=== PATIENT | male | born 1975 | race Caucasian/White ===

== ENCOUNTER 2017-11-15 18:42 | Inpatient (IN) | payer MEDICARE, MEDICAID ==
--- OUTSIDE RECORDS SUMMARY | 2017-11-15 18:59 | XMS REPORT ---
:1975 External Reference #:[id number] Author Organization [employer] Address [address] [place] [address] [place] [address] Phone [phone] Care Team Providers Name Role Phone Geraldine An MD Primary Care Physician Unavailable Payers Type Date Identification Numbers Payment Provider Subscriber Commercial Expires: Policy Number: [employer] Madhu Guidry 2016 [id number] Essential PayID: [id number] [address] [address] [place] [address] Medigap Part B Policy Number: [id number] Medicare Madhu Guidry PayID: [id number] [address] [place] [address] Medigap Part B Policy Number: [id number] Medicaid Madhu Guidry Group Name: 1 1 [address] PayID: [id number] [place] [address] Problems Date Description Provider Status Onset: 09/22/2017 Localized, primary osteoarthritis Nirmala Mora M.D. Active Onset: 08/19/2016 Aseptic necrosis of head of femur Nirmala Mora M.D. Active Family History Date Family Member(s) Problem(s) Comments General Diabetes General Heart Disease General Hypertension General Cancer Mother Diabetes Mother Arthritis Social History Type Date Description Comments Lives With Spouse Occupation Disabled ETOH Use Denies alcohol use Smoking Patient is a current smoker, smokes every day Smoking Light tobacco smoker (10 or fewer cigarettes/day) Exercise Type/Frequency Exercises sporadically Allergies, Adverse Reactions, Alerts Date Description Reaction Status Severity Comments 07/21/2016 Biaxin active 07/21/2016 Sulfa Antibiotics active 07/21/2016 Bactrim active 07/21/2016 Bee Sting active Medications Medication Date Status Form Strength Qnty SIG Indications Ordering Provider Epipen 2-Elton / Active Solution 0.3mg/0.3M use as Unknown 0000 Auto-Injec L directed t Nitroglycerin / Active Tablets 0.4mg 1 sl Unknown 0000 Sub q5mins x3 as needed for chest pain Keppra / Active Tablets 750mg 1 by mouth Unknown 0000 twice a day Depakote ER // Active Tablets ER 500mg 1 by mouth Unknown 0000 24HR every night at bedtime Topamax / Active Tablets 200mg take one Unknown 0000 capsule/ta blet by mouth twice daily (at present time 150 mg twice a day, may titrate 200 mg bid) Dulera / Active Aerosol 100-5mcg/A [address] twice a day Ventolin HFA / Active Aerosol 108(90Base 2 puffs by Unknown 0000 ) mcg/Act mouth four times a day as needed Atrovent HFA / Active Aerosol 17mcg/Act 1 unit, Unknown 0000 inhl, twice a day Singulair / Active Tablets 10mg 1 by mouth Unknown 0000 every day Hydrocortisone / Active Cream 1% as Unknown Acetate 0000 directed Oxymorphone HCL / Active Tablets ER 10mg 1 by mouth Unknown ER 0000 12HR twice a day as needed pain Ibuprofen / Active Tablets 800mg by mouth Unknown 0000 three times a day as needed Mucinex / Active Tablets ER 600mg twice a Unknown 0000 12HR day as needed Bentyl / Active Capsules 10mg 1 by mouth Unknown 0000 twice a day Zyrtec Allergy / Active Tablets 10mg 1 by mouth Unknown 0000 every day for the next 3-4 weeks, then as needed Albuterol / Active Unknown Sulfate 0000 Gabapentin / Active Capsules 400mg take one Unknown 0000 capsule by mouth 3 times a day Oxymorphone HCL / Active Tablets 1 by mouth Unknown Ir 0000 four times Seroquel / Active Tablets 100mg take 1-2 Unknown 0000 tablet by mouth every night Naproxen / Active Tablets 375mg twice a Unknown 0000 day with food Omeprazole / Hx Capsules 40mg 1 by mouth Unknown 0000 - DR every day 2017 Aspirin / Hx Chewtabs 81mg 1 by mouth Unknown 0000 - every day 2017 Lisinopril / Hx Tablets 10mg 1 by mouth Unknown 0000 - every day 2017 Celebrex / Hx Capsules 200mg 1 by mouth Unknown 0000 - every day 2017 Metformin HCL / Hx Tablets 500mg 1 by mouth Unknown 0000 - twice a 2017 Topiramate / Hx Tablets 200mg 1 by mouth Unknown 0000 - twice a 2017 Medications Administered in Office Medication Date Status Form Strength Qnty SIG Indications Ordering Provider Depomedrol Administered Injection Nirmala 40MG 018 Clementina Mora Depomedrol Administered Injection Nirmala 40MG 018 Clementina Mora Vital Signs Date Vital Result Comment 11/03/2017 Height 71 inches 5'11" Weight 238.00 lb Heart Rate 72 /min BP Systolic 132 mmHg BP Diastolic 84 mmHg BMI (Body Mass Index) 33.2 kg/m2 10/23/2017 Height 71 inches 5'11" Weight 231.00 lb Heart Rate 75 /min BP Systolic 136 mmHg BP Diastolic 78 mmHg Pain Level 10 BMI (Body Mass Index) 32.2 kg/m2 08/19/2016 Height 72 inches 6'0" Weight 244.00 lb Heart Rate 68 /min BP Systolic 112 mmHg BP Diastolic 83 mmHg BMI (Body Mass Index) 33.1 kg/m2 07/26/2016 Height 72 inches 6'0" Weight 244.00 lb Heart Rate 80 /min BP Systolic 120 mmHg BP Diastolic 80 mmHg Respiratory Rate 20 /min Pain Level 8 BMI (Body Mass Index) 33.1 kg/m2 Results Test Date Test Result H/L Range Note Inr/Protime 11/06/2017 Inr 0.92 0.77-1.02 Laboratory test finding 11/06/2017 Partial Thrombo 30.9 seconds 26.0- 36.3 Time PTT CBC Auto Diff 11/06/2017 White Blood Count 9.1 10^3/uL 3.5-10.8 Red Blood Count 4.40 10^6/uL 4.00-5.40 Hemoglobin 13.9 g/dL Low 14.0-18.0 Hematocrit 42 % 42-52 Mean Corpuscular Volume 94 fL 80-94 Mean Corpuscular Hemoglobin 32 pg High 27-31 Mean Corpuscular HGB Conc 34 g/dL 31-36 Red Cell Distribution Width 14 % 10.5-15 Platelet Count 207 10^3/uL 150-450 Mean Platelet Volume 8.7 um3 7.4-10.4 Abs Neutrophils 5.5 10^3/uL 1.5-7.7 Abs Lymphocytes 2.9 10^3/uL 1.0-4.8 Abs Monocytes 0.6 10^3/uL 0-0.8 Abs Eosinophils 0.1 10^3/uL 0-0.6 Abs Basophils 0.1 10^3/uL 0-0.2 Abs Nucleated RBC 0 10^3/uL Granulocyte % 59.8 % 38-83 Lymphocyte % 31.3 % 25-47 Monocyte % 7.1 % High 0-7 Eosinophil % 1.2 % 0-6 Basophil % 0.6 % 0-2 Nucleated Red Blood Cells % 0 Urinalysis Profile 11/06/2017 Urine Color Yellow Urine Appearance Cloudy Urine Specific Flomot 1.013 1.010-1.030 Urine pH 7.0 5-9 Urine Urobilinogen Negative Negative Urine Ketones Negative Negative Urine Protein Negative Negative Urine Leukocytes Negative Negative Urine Blood Negative Negative Urine Nitrite Negative Negative Urine Bilirubin Negative Negative Urine Glucose Negative Negative Comp Metabolic Panel 11/06/2017 Sodium 142 mmol/L 135-145 Potassium 4.0 mmol/L 3.5-5.0 Chloride 106 mmol/L 101-111 Co2 Carbon Dioxide 28 mmol/L 22-32 Anion Gap 8 mmol/L 2-11 Glucose 97 mg/dL 70-100 Blood Urea Nitrogen 16 mg/dL 6-24 Creatinine 0.86 mg/dL 0.67-1.17 BUN/Creatinine Ratio 18.6 8-20 Calcium 9.6 mg/dL 8.6-10.3 Total Protein 7.0 g/dL 6.4-8.9 Albumin 4.1 g/dL 3.2-5.2 Globulin 2.9 g/dL 2-4 Albumin/Globulin Ratio 1.4 1-3 Total Bilirubin 0.40 mg/dL 0.2-1.0 Alkaline Phosphatase 62 U/L 34-104 Alt 6 U/L Low 7-52 Ast 9 U/L Low 13-39 Egfr Non- 97.1 >60 Egfr 117.4 >60 1 Type & Screen 11/06/2017 Patient Blood Type A Positive Antibody Screen NEGATIVE 1 Because ethnic data is not always readily available, this report includes an eGFR for both -Americans and non- Americans. The National Kidney Disease Education Program (NKDEP) does not endorse the use of the MDRD equation for patients that are not between the ages of 18 and 70, are , have extremes of body size, muscle mass, or nutritional status, or are non- or non-. According to the National Kidney Foundation, irrespective of diagnosis, the stage of the disease is based on the level of kidney function: Stage Description GFR(mL/min/1.73 m(2)) 1 Kidney damage with normal or decreased GFR 90 2 Kidney damage with mild decrease in GFR 60-89 3 Moderate decrease in GFR 30-59 4 Severe decrease in GFR 15-29 5 Kidney failure <15 (or dialysis) Procedures Date CPT Code Description Status 09/22/2017 32739 Inject/Drain Joint/Bursa Major W/O US Completed Encounters Type Date Location Provider CPT E/M Dx Office Visit 10/23/2017 [facility] Nirmala Mora M.D. 28195 M87.051 1:45p [facility] M25.551 M16.11 Office Visit 09/22/2017 8:30a [facility] Nirmala Mroa M.D. 28875 M87.051 [facility] M87.052 M25.551 M25.552 M25.561 M25.562 M25.461 M25.462 M17.0 Office Visit 08/19/2016 1:15p [facility] Nirmala Mora M.D. 34821 M87.051 [facility] M25.551 M87.052 M25.552 Office Visit 07/26/2016 1:00p [facility] [place] [address] M87.051 [facility] AT [place] Office Visit 12/13/2011 3:36p [facility] Juanjose [place], [address] 345.80 Assoc,pc Hospitalists N.P. Office Visit 12/12/2011 3:38p [facility] Beth Bull, [address] 780.39 Services Of Leno Mcrae Office Visit 12/12/2011 3:36p [facility] Mariposa [place], [address] 345.80 ted Aguirre Hospitalists Clementina Plan of Care Future Appointment(s):11/24/2017 1:45 pm - Nirmala Mora M.D. at [facility].11/16/2017 2:30 pm - Efrain Olivo PA-C at [facility] ..A.11/16/2017 2:30 pm - CORIE Patricio at [facility] ..A.11/16/2017 2:30 pm - Nirmala Mora M.D. at [facility]..11/03/2017 - Nirmala Mora M.D.M25.551 Pain in right hipFollow up:Follow up: 2 weeks after [id number] Unilateral primary osteoarthritis, right hip
--- OUTSIDE RECORDS SUMMARY | 2017-11-15 18:59 | XMS REPORT ---
:1975 External Reference #:[id number] Author Organization [employer] Address [address] [place] [address] Phone [phone] Care Team Providers Name Role Phone Geraldine An MD Primary Care Physician Unavailable Payers Type Date Identification Numbers Payment Provider Subscriber Commercial Expires: Policy Number: [employer] Madhu Guidry 2016 [id number] [employer] PayID: [id number] [address] [address] [place] [address] Medigap Part B Policy Number: [id number] Medicare Madhu Guidry PayID: [id number] [address] [place] [address] Medigap Part B Policy Number: [id number] Medicaid Madhu Guidry Group Name: 1 1 [address] PayID: [id number] [place] [address] Problems Date Description Provider Status Onset: 09/22/2017 [...] Mora Vital Signs Date Vital Result Comment 10/23/2017 Height 71 inches 5'11" Weight 231.00 [...] BMI (Body Mass Index) 33.1 kg/m2 Results Description No Information Procedures Date CPT Code Description Status 09/22/2017 04847 Inject/Drain Joint/Bursa Major W/O US Completed Encounters Type Date Location Provider CPT E/M Dx Office Visit 09/22/2017 [facility] Nirmala Mora M.D. 41042 M87.051 8:30a [facility] M87.052 M25.551 M25.552 M25.561 M25.562 M25.461 M25.462 M17.0 Office Visit 08/19/2016 1:15p [facility] Nirmala Mora M.D. 39270 M87.051 [facility]. M25.551 M87.052 M25.552 Office Visit 07/26/2016 1:00p [facility] [place] [address] M87.051 Negative Checker AT [place] Office Visit 12/13/2011 3:36p [facility] Juanjose [place], [address] 345.80 Ass, Hospitalists N.P. Office Visit 12/12/2011 3:38p [facility] Beth Bull, [address] 780.39 Services Of Leno Mcrae Office Visit 12/12/2011 3:36p [facility] Mariposa [place]ozhn, [address] 345.80 Princess, Hospitalists Clementina Plan of Care Future Appointment(s):11/03/2017 2:15 pm - Nirmala Mora M.D. at [facility] [place]10/23/2017 - Nirmala Mora M.D.M87.051 Idiopathic aseptic necrosis of right femurFollow up:Follow up: 7-10 days before [id number] Pain in right hip
--- OUTSIDE RECORDS SUMMARY | 2017-11-15 18:59 | XMS REPORT ---
:1975 External Reference #:[id number] Author Organization [employer] Address [address] [place] [address] Phone [phone] Care Team Providers Name Role Phone Geraldine An MD Primary Care Physician Unavailable Payers Type Date Identification Numbers Payment Provider Subscriber Commercial Expires: Policy Number: [employer] Madhu Guidry 2016 [id number] [employer] PayID: [id number] [address] [address] [place] [address] Medigap Part B Policy Number: [id number] Medicare Madhu Guidry PayID: [id number] [address] [place] [address] Medigap Part B Policy Number: [id number] Medicaid Madhu Guidry Group Name: 1 1 [address] PayID: [id number] [place] [address] Problems Date Description Provider Status Onset: 09/22/2017 [...] Procedures Date CPT Code Description Status 09/22/2017 33092 Inject/Drain Joint/Bursa Major W/O US Completed Encounters Type Date Location Provider CPT E/M Dx Office Visit 10/23/2017 [facility] Nirmala Mora M.D. 47639 M87.051 1:45p Of C.MEmilieAEmilie M25.551 M16.11 Office Visit 09/22/2017 8:30a [facility] Nirmala Mora M.D. 89243 M87.051 C.M.AEmilie M87.052 M25.551 M25.552 M25.561 M25.562 M25.461 M25.462 M17.0 Office Visit 08/19/2016 1:15p [facility] Nirmala Mora M.D. 85870 M87.051 C.[facility]. M25.551 M87.052 M25.552 Office Visit 07/26/2016 1:00p [facility] [place] [address] M87.051 [employer] AT [place] Office Visit 12/13/2011 3:36p [facility], [address] 345.80 Assoc, Hospitalists N.P. Office Visit 12/12/2011 3:38p [facility] Beth Bull, [address] 780.39 Services Of Leno Mcrae Office Visit 12/12/2011 3:36p [facility] Mariposa Moore, [address] 345.80 Assoc, Hospitalists M.DEmilie Plan of Care Future Appointment(s):11/24/2017 1:45 pm - Nirmala Mora M.D. at [facility].11/16/2017 2:30 pm - Efrain Olivo PA-C at [facility]11/16/2017 2:30 pm - CORIE Patricio at [facility].11/16/2017 2:30 pm - Nirmala Mora M.D. at [facility]11/03/2017 - Nirmala Mora M.D.M25.551 Pain in right hipFollow up:Follow up: 2 weeks after stpatloH16.11 Unilateral primary osteoarthritis, right hip
--- NOTE | 2017-11-15 20:00 | ED ---
Shortness of Breath - HPI Summary HPI Summary: This is scribe Haylee Cuellar documenting for attending Tom Mclaughlin MD. This patient is a 42 year old M presenting to [facility] accompanied by family with a chief complaint of progressively worsening SOB and dry cough. Reports fever, chills, and sweats for the past three days. Family reports and Sa02 of 87% at home. PMHx of asthma, COPD, seizures, chronic low back pain, and pre-diabetes I, Dr. Mclaughlin, personally performed the services described in this documentation as scribed in my presence and it is both accurate and complete. - History of Current Complaint Chief Complaint: EDShortnessOfBreath Time Seen by Provider: 11/15/17 19:50 Hx Obtained From: Patient Onset/Duration: Lasting Days Timing: Constant Current Severity: Mild Associated Signs & Symptoms: Cough (Nonproductive) Related History: Similar Episode - astham COPD - Allergy/Home Medications Allergies/Adverse Reactions: Allergies Allergy/AdvReac Type Severity Reaction Status Date / Time Sulfa (Sulfonamide Allergy Severe hives and Verified 11/15/17 20:10 Antibiotics) thrush sulfamethoxazole Allergy Severe Hives Verified 11/15/17 20:10 [From Bactrim] trimethoprim [From Bactrim] Allergy Severe Hives Verified 11/15/17 20:10 bee stings Allergy Severe Anaphylatic Uncoded 11/15/17 20:10 Shock Home Medications: Home Medications metFORMIN* [Glucophage 500 MG TAB *] 500 mg PO BID 11/15/17 [History Confirmed 11/15/17] PMH/Surg Hx/FS Hx/Imm Hx Endocrine/Hematology History: Denies: Hx Diabetes - corrected, Hx Thyroid Disease Comment Only: Hx Anticoagulant Therapy - aspirin for TIA's Cardiovascular History: Reports: Hx Hypertension, Other Cardiovascular Problems/ Disorders - 2 TIA's Denies: Hx Pacemaker/ICD Respiratory History: Reports: Hx Asthma, Hx Chronic Obstructive Pulmonary Disease (COPD) History: Denies: Hx Renal Disease Musculoskeletal History: Reports: Hx Arthritis, Hx Back Problems Sensory History: Reports: Hx Vision Problem - colorblind Opthamlomology History: Reports: Hx Vision Problem - colorblind Neurological History: Reports: Hx Seizures Denies: Hx Dementia Psychiatric History: Reports: Hx Depression, Hx Bipolar Disorder Denies: Hx Substance Abuse - Surgical History Surgery Procedure, Year, and Place: appendectomy, hernia repair, R wrist surgery. nasal septoplasty Hx Anesthesia Reactions: No Infectious Disease History: No Infectious Disease History: Denies: Hx Hepatitis, Hx Human Immunodeficiency Virus (HIV), Traveled Outside the [place] in Last 30 Days - Family History Known Family History: Positive: Cardiac Disease, Hypertension, Diabetes, Seizure Disorder - DAUGHTER - Social History Alcohol Use: None Substance Use Type: Reports: Prescribed Smoking Status (MU): Light Every Day Tobacco Smoker Type: Cigarettes Amount Used/How Often: 6 cigs daily Have You Smoked in the Last Year: Yes Review of Systems Positive: Fever, Chills, Skin Diaphoresis Positive: Shortness Of Breath, Cough All Other Systems Reviewed And Are Negative: Yes Physical Exam - Summary Physical Exam Summary: VITAL SIGNS: Reviewed. GENERAL: Patient is a well-developed and nourished male who is lying comfortable in the stretcher. Patient is not in any acute respiratory distress. HEAD AND FACE: No signs of trauma. No ecchymosis, hematomas or skull depressions. No sinus tenderness. EYES: PERRLA, EOMI x 2, No injected conjunctiva, no nystagmus. EARS: Hearing grossly intact. Ear canals and tympanic membranes are within normal limits. MOUTH: Oropharynx within normal limits. NECK: Supple, trachea is midline, no adenopathy, no JVD, no carotid bruit, no c- spine tenderness, neck with full ROM. CHEST: Symmetric, no tenderness at palpation LUNGS: Diffuse wheezing and crackles in the bases CVS: Regular rate and rhythm, S1 and S2 present, no murmurs or gallops appreciated. ABDOMEN: Soft, non-tender. No signs of distention. No rebound no guarding, and no masses palpated. Bowel sounds are normal. EXTREMITIES: FROM in all major joints, no edema, no cyanosis or clubbing. NEURO: Alert and oriented x 3. No acute neurological deficits. Speech is normal and follows commands. SKIN: Dry and warm Triage Information Reviewed: Yes Vital Signs On Initial Exam: Initial Vitals Temp Pulse Resp BP Pulse Ox 98.1 F 69 18 120/83 95 11/15/17 18:45 11/15/17 18:45 11/15/17 18:45 11/15/17 18:45 11/15/17 18:45 Vital Signs Reviewed: Yes Diagnostics - Vital Signs Vital Signs Temp Pulse Resp BP Pulse Ox 11/15/17 18:45 98.1 F 69 18 120/83 95 - Laboratory Result Diagrams: 11/15/17 20:21 11/15/17 20:20 Lab Statement: Any lab studies that have been ordered have been reviewed, and results considered in the medical decision making process. - Radiology CXR Radiology Interpretation Completed By: ED Physician - Hyperinflated lungs. No acute pulmonary disease. - EKG 1923 Cardiac Rate: Bradycardia - 56 BPM EKG Rhythm: Sinus Bradycardia EKG Interpretation: no ST elevation Course/Dx - Course Assessment/Plan: This patient is a 42-year-old male who presents to the emergency department with chief complaint of having shortness of breath and dry cough. Patient has past medical history significant for diabetes,chronic back pain, seizure disorder, migraine headaches, Asthma and COPD. Test results shows a hemoglobin of 12.5 hematocrit 37. ABG pH is 7.4, PCO2 37, PO2 is 75, O2 sat 97. Chloride of 112 and CRP of 91.1. The initial physical exam: Lungs the patient is having diffuse wheezing and possibly crackles in the bases of lungs. Patient was given MULTIPLE DuoNebs, and Solu-Medrol and the patient felt slightly better however he is still very tight. The patient has still a lot of wheezing therefore the patient is with an active COPD exacerbation. I discussed my physical exam and findings with Dr. Ma from the hospitalist services and she agreed to admit the patient to his services for further workup and management. The patient is hemodynamically stable alert and oriented 3. - Diagnoses Differential Diagnosis/HQI/PQRI: Positive: Asthma, Bronchitis, CHF, COPD Exacerbation Provider Diagnoses: COPD exacerbation - Physician Notifications Discussed Care of Patient With: Paula Ma - hospitalist Time Discussed With Above Provider: 21:20 Instructed by Provider To: Admit As Inpatient Discharge - Sign-Out/Discharge Documenting (check all that apply): Patient Departure - Discharge Plan Condition: Stable Disposition: ADMITTED TO [facility] - Billing Disposition and Condition Condition: STABLE Disposition: Admitted to [facility]
[2017-11-15] MEDS ORDERED: methylPREDNISolone 125 MG* 2 ML VIAL IV ONE (20:01)
[2017-11-15] MEDS ORDERED: Albuterol/Ipratropium NEB.SOL* Albuterol 2.5 MG/Ipratropium 0.5 MG 3 ML ONE (20:10)
[2017-11-15] MEDS: Albuterol/Ipratropium NEB.SOL* Albuterol 2.5 MG/Ipratropium 0.5 MG 3 ML INH SCH ×2 (20:23→20:24)
[2017-11-15 20:32] LABS: ABS Basophils 0 10^3/ul (0-0.2); ABS Eosinophils 0 10^3/ul (0-0.6); ABS Lymphocytes 2.3 10^3/ul (1.0-4.8); ABS Monocytes 0.7 10^3/ul (0-0.8); ABS Neutrophils 5.7 10^3/ul (1.5-7.7); ABS Nucleated RBC 0 10^3/ul; Eosinophil % 0.3 % (0-6); Hematocrit 37 % (42-52); Hemoglobin 12.5 g/dl (14.0-18.0); Mean Corpuscular HGB Conc 34 g/dl (31-36); Mean Corpuscular Hemoglobin 31 pg (27-31); Mean Corpuscular Volume 92 fL (80-94); Mean Platelet Volume 7.3 um3 (7.4-10.4); Nucleated Red Blood Cells % 0.1; Platelet Count 231 10^3/ul (150-450); Red Blood Count 3.99 10^6/ul (4.00-5.40); Red Cell Distribution Width 14 % (10.5-15); White Blood Count 8.7 10^3/ul (3.5-10.8)
[2017-11-15 20:53] LABS: EGFR Non-African American 110.3 (>60)
[2017-11-15] MEDS ORDERED: Albuterol/Ipratropium NEB.SOL* Albuterol 2.5 MG/Ipratropium 0.5 MG 3 ML INH SCH (21:00)
[2017-11-15] MEDS ORDERED: Morphine INJ* 2 MG/ML 1 ML SYRINGE (TWO MG - NEW SYRINGE VERSION) IV ONE (22:41)
[2017-11-15] MEDS ORDERED: Metoclopramide IV* 5 MG/ML 2 ML VIAL IV SLOW PU ONE (22:42)
[2017-11-16] MEDS ORDERED: NS 0.9% 1000 ML* 1,000 ML IV SCH (00:15)
[2017-11-16 00:43] LABS: Urine Appearance Clear; Urine Blood Negative (Negative); Urine Color Yellow; Urine Ketones Negative (Negative); Urine Protein Negative (Negative); Urine Specific Gravity 1.012 (1.010-1.030); Urine Urobilinogen Positive (Negative)
--- NOTE | 2017-11-16 01:48 | HP ---
CC: Dr. Geraldine An* HISTORY AND PHYSICAL: DATE OF ADMISSION: 11/16/17 PRIMARY CARE PROVIDER: Dr. Geraldine An. CHIEF COMPLAINT: Shortness of breath. HISTORY OF PRESENT ILLNESS: Mr. Marx is a 42-year-old male with a history of COPD and asthma, seasonal allergies and seizures who presents to the emergency room with complaints of cough and shortness of breath. The patient states his symptoms began approximately 3 to 4 days ago with what he felt was a head cold. It has progressed to the point where he now is coughing very frequently and bringing up thick brown, tracy sputum. He has had runny nose. Today, he thinks that he had a fever and then broke out into sweats. He has had teeth chattering chills today. The patient's girlfriend on the day of admission thought he appeared pale and looked like he was struggling to breathe, so she checked his oxygen level and it was found to be only 87%. At that point, he was brought to the emergency room for evaluation. The patient was exposed to a grandchild who recently had a cold. PAST MEDICAL HISTORY: 1. COPD. 2. Asthma. 3. Seasonal allergies. 4. Seizure disorder. 5. Migraines. PAST SURGICAL HISTORY: 1. Appendectomy. 2. Left inguinal hernia repair. 3. Deviated septum repair. MEDICATIONS: 1. Metformin 500 mg p.o. b.i.d. 2. Bentyl 10 mg p.o. q.i.d. p.r.n. diarrhea. 3. Depakote 1000 mg p.o. b.i.d. 4. Zyrtec 10 mg p.o. daily. 5. Singulair 10 mg p.o. q.h.s. 6. Dulera 200/5 two puffs inhaled twice daily. 7. Keppra 750 mg p.o. b.i.d. 8. Atrovent 2 puffs inhaled b.i.d. 9. Gabapentin 400 mg p.o. t.i.d. 10. EpiPen 0.3 mg IM once p.r.n. allergic reaction. 11. Seroquel 50 mg p.o. q.h.s. 12. Oxymorphone ER 10 mg p.o. q.12 hours. 13. Oxymorphone 10 mg p.o. q.i.d. 14. Naproxen 550 mg p.o. b.i.d. 15. Guaifenesin ER 1200 mg p.o. b.i.d. 16. Ventolin 2 puffs inhaled q.i.d. p.r.n. shortness of breath. 17. Topamax 200 mg p.o. b.i.d. ALLERGIES: SULFA and BEE STINGS. FAMILY HISTORY: Mom at the age of 66 of COPD. Dad's health is unknown. SOCIAL HISTORY: The patient states that he quit smoking approximately a couple days ago, most recently he has been smoking only a few cigarettes, however was smoking much more than previously. He smoked for at least the last 17 years. He denies any alcohol use or recreational drug use. He states he is disabled. He has a girlfriend with whom he lives. He has 6 children. His girlfriend, Lin, would be his healthcare proxy. REVIEW OF SYSTEMS: A complete 11-system review of systems is obtained. Pertinent positives and negatives are as per HPI and in addition, the patient does state that since he became ill with his respiratory illness, he has had off and on chest discomfort, nausea, vomiting, and diarrhea. The patient does admit to generalized weakness. PHYSICAL EXAMINATION GENERAL: The patient is a well-developed, young male, who appears acutely ill, lying in the stretcher, but in no acute distress. VITAL SIGNS: Blood pressure 116/61, pulse 71, respirations 18, temp 98.1, O2 sat 91% on room air. HEENT: Pupils are equal and round. Extraocular muscles are intact. Oropharynx is clear. Oral mucosa is moist. There is no submandibular, cervical , or supraclavicular adenopathy. Thyroid is not enlarged. No thyroid nodules are noted. PULMONARY: Lungs have rhonchorous breath sounds throughout with few forced expiratory wheezes. The patient coughs frequently with deep breath. CARDIAC: Normal S1, S2. Regular rate and rhythm. I do not appreciate any murmurs. There is trace bilateral lower extremity pitting edema. ABDOMEN: Bowel sounds are present. Abdomen is soft, nontender, and nondistended. MUSCULOSKELETAL: There is no cyanosis or clubbing of the digits. There is full active range of motion of all 4 extremities. NEURO: Cranial nerves II through XII are grossly intact. Sensation is intact to light touch throughout. Strength is 5/5 and symmetric in both upper and lower extremities bilaterally. SKIN: Warm and dry. There are no rashes. The patient does have some brown areas of discoloration noted on his lower legs. PSYCH: The patient is alert. He is oriented x3. Affect appears appropriate. DIAGNOSTIC STUDIES/LAB DATA: WBC 8.7, hemoglobin 12.5, hematocrit 37, platelets 231. Sodium 144, potassium 3.5, chloride 112, CO2 of 26, BUN 11, creatinine 0.77, glucose 88, lactic acid 1.1, calcium 9.4. Bilirubin 0.3, AST 17, ALT 12, alk phos 58. CPK 41, CK-MB 1.2, troponin 0.01. CRP 91.16. BNP 95. Albumin 3.7. EKG reveals normal sinus rhythm without any acute ST-T wave abnormalities. Chest x- ray to my interpretation appears clear. ASSESSMENT AND PLAN: Mr. Marx is a 42-year-old male who was a smoker up until 2 days prior to admission, who also has a history of chronic obstructive pulmonary disease, who presents to the emergency room with complaints of cough and shortness of breath and he is being admitted for a chronic obstructive pulmonary disease exacerbation secondary to possible bronchitis versus early pneumonia. 1. Chronic obstructive pulmonary disease exacerbation secondary to probable bronchitis versus early pneumonia. The patient will be started on ceftriaxone and azithromycin. This will be tried this evening as he did not receive a dose in the emergency room. The patient will be placed on standing nebulizers every 4 hours and Solu-Medrol 40 mg IV q.8 hours. The patient is supposed to have a total hip arthroplasty with Dr. Mora tomorrow and this will need to be postponed until the patient's respiratory rate is improved. The patient again appears acutely ill. I will send off his sputum sample as well as urine for Legionella and Streptococcus pneumoniae antigens. Given his appearance, I do feel like we should rule out influenza, though this would be very early for influenza. The patient will otherwise be continued on his usual inhalers. 2. Seizure disorder. The patient will be maintained on all of his usual antiepileptics. 3. Chronic pain. I have ordered oxymorphone as he takes at home for the patient; however, this is nonformulary and we will need to determine what we can get in for him. 4. DVT prophylaxis. According to the Adult Thrombosis Prophylaxis Risk Factor Assessment Guide, the patient has a total risk factor score of 3 making him high risk. He will be placed on heparin 5000 units subcutaneous q.8 hours. 5. Code status is full. TIME SPENT: Sixty-five minutes was spent admitting this patient, of which greater than half was spent [id number] with the patient reviewing his history and performing a physical exam. [id number]/[facility] #: [id number] LIZZ
[2017-11-16] MEDS: Ondansetron INJ* 2 MG/ML VIAL IV PRN ×3 (01:50→23:00)
[2017-11-16] MEDS: Azithromycin IV(*) 500 MG in NS 0.9% 250 ML* 250 ML IVPB SCH (02:10)
[2017-11-16] MEDS: Morphine INJ* 2 MG/ML 1 ML SYRINGE (TWO MG - NEW SYRINGE VERSION) IV PRN ×2 (02:10→12:45)
[2017-11-16] MEDS: Oxymorphone IR (NF) 5 MG TAB PO SCH ×5 (02:12→21:33)
[2017-11-16] MEDS: Divalproex DR TAB(*) 500 MG PO SCH ×3 (02:13→21:34)
[2017-11-16] MEDS: Gabapentin CAP(*) 400 MG PO SCH ×4 (02:13→21:35)
[2017-11-16] MEDS: guaiFENesin ER TAB 600 MG PO SCH ×3 (02:13→21:32)
[2017-11-16] MEDS: levETIRAcetam TAB* 500 MG PO SCH ×3 (02:13→21:27)
[2017-11-16] MEDS: Albuterol 2.5 MG/3 ML NEB.SOL* (0.083%) INH SCH ×6 (03:18→22:31)
[2017-11-16] MEDS: cefTRIAXone(*) 1 GM in NS 0.9% 50 ML* 50 ML IVPB SCH (03:36)
[2017-11-16] MEDS: methylPREDNISolone SOD 40 MG* 1 ML VIAL IV SCH ×3 (05:45→21:26)
[2017-11-16] MEDS: Acetaminophen TAB* 325 MG PO PRN ×3 (05:46→21:29)
[2017-11-16] MEDS: Heparin VIAL(*) 5000 UNITS/ML VIAL (FIVE THOUSAND) SUBCUT SCH ×3 (05:47→21:36)
--- NOTE | 2017-11-16 07:12 | RAD ---
INDICATION: Shortness of breath. COMPARISON: Comparison is made with a prior chest x-ray study from November 06, 2017. TECHNIQUE: Dual-energy PA and lateral views of the chest were obtained. FINDINGS: The heart is within normal limits in size. Mediastinal and hilar contours appear within normal limits. The lungs are underinflated and clear. No pleural effusion is seen. IMPRESSION: NO EVIDENCE FOR ACTIVE CARDIOPULMONARY DISEASE. R1
[2017-11-16] MEDS: Oxymorphone ER (NF) 5 MG TAB PO SCH ×2 (07:51→22:32)
[2017-11-16] MEDS: Topiramate TAB(*) 100 MG PO SCH ×2 (07:52→21:30)
[2017-11-16] MEDS: Mometasone/Formoter 200/5 MDI INH SCH ×2 (07:54→19:57)
[2017-11-16] MEDS: Tiotropium CAP.INH* CAP.INH/18 MCG (USE ORDER SET !) INH SCH (07:55)
[2017-11-16] MEDS: Lactobacillus Acidophilus* 1 TAB PO SCH ×2 (08:58→21:31)
[2017-11-16] MEDS ORDERED: Spiriva Inhaler DEVICE* 1 EACH DEVICE INH ONE (09:00)
[2017-11-16] MEDS ORDERED: Ipratropium HFA INHALER(NF) (ALTERNATIVE = NEBS) INH SCH (09:00)
--- NOTE | 2017-11-16 13:49 | PN ---
Subjective Date of Service: 11/16/17 Interval History: Pt s/o SOB and cough. Also has left ear pain Objective Active Medications: Acetaminophen (Tylenol Tab*) 650 mg PO Q4H PRN PRN Reason: PAIN Last Admin: 11/16/17 05:46 Dose: 650 mg Albuterol (Ventolin 2.5 Mg/3 Ml Neb.Kathia*) 2.5 mg INH [id number] AWAKE [facility] Last Admin: 11/16/17 11:42 Dose: 2.5 mg Dicyclomine HCl (Bentyl Cap*) 10 mg PO QID PRN PRN Reason: DIARRHEA Divalproex Sodium (Depakote Dr Tab(*)) 1,000 mg PO BID [facility] Last Admin: 11/16/17 07:52 Dose: 1,000 mg Gabapentin (Neurontin Cap(*)) 400 mg PO TID [facility] Last Admin: 11/16/17 12:46 Dose: 400 mg Guaifenesin (Mucinex*) 1,200 mg PO BID [facility] Last Admin: 11/16/17 07:51 Dose: 1,200 mg Heparin Sodium (Porcine) (Heparin Vial(*)) 5,000 units SUBCUT Q8HR [facility] Last Admin: 11/16/17 12:47 Dose: 5,000 units Ceftriaxone Sodium 1 gm/ (Sodium Chloride) 50 mls @ 200 mls/hr IVPB Q24H [facility] Last Admin: 11/16/17 03:36 Dose: 200 mls/hr Azithromycin 500 mg/ Sodium (Chloride) 250 mls @ 250 mls/hr IVPB Q24H [facility] Last Admin: 11/16/17 02:10 Dose: 250 mls/hr Lactobacillus Rhamnosus (Lactobacillus Acidophilus*) 1 tab PO BID [facility] Last Admin: 11/16/17 08:58 Dose: 1 tab Levetiracetam (Keppra Tab*) 750 mg PO BID [facility] Last Admin: 11/16/17 07:52 Dose: 750 mg Methylprednisolone Sodium Succinate (Solu-Medrol 40 Mg) 40 mg IV Q8H [facility] Last Admin: 11/16/17 12:46 Dose: 40 mg Mometasone Furoate/Formoterol Fumar (Dulera 200/5 Mdi*) 2 puff INH BID [facility] Last Admin: 11/16/17 07:54 Dose: 2 puff Montelukast Sodium (Singulair Tab*) 10 mg PO BEDTIME [facility] Morphine Sulfate (Morphine Inj ((Syringe))*) 4 mg IV Q4H PRN PRN Reason: PAIN - MILD Last Admin: 11/16/17 02:10 Dose: 4 mg Ondansetron HCl (Zofran Inj*) 4 mg IV Q6H PRN PRN Reason: NAUSEA Last Admin: 11/16/17 01:50 Dose: 4 mg Oxymorphone HCl (Opana Ir (Nf)) 10 mg PO QID [facility] Last Admin: 11/16/17 12:45 Dose: 10 mg Oxymorphone HCl (Opana Er (Nf)) 10 mg PO Q12HR [facility] Last Admin: 11/16/17 07:51 Dose: 10 mg Quetiapine Fumarate (Seroquel Tab*) 50 mg PO BEDTIME [facility] Tiotropium [place] (Spiriva Cap.Inh*) 1 cap INH DAILY [facility] Last Admin: 11/16/17 07:55 Dose: 1 cap Topiramate (Topamax(*)) 200 mg PO BID [facility] Last Admin: 11/16/17 07:52 Dose: 200 mg Vital Signs - 8 hr 11/16/17 11/16/17 11/16/17 07:31 07:50 07:51 Temperature 98.1 F Pulse Rate 70 78 Respiratory 18 16 20 Rate Blood Pressure 104/66 (mmHg) O2 Sat by Pulse 93 98 Oximetry 11/16/17 11/16/17 11/16/17 10:40 11:42 12:45 Temperature Pulse Rate 84 Respiratory 22 18 16 Rate Blood Pressure (mmHg) O2 Sat by Pulse 98 Oximetry 11/16/17 12:46 Temperature Pulse Rate Respiratory 16 Rate Blood Pressure (mmHg) O2 Sat by Pulse Oximetry Oxygen Devices in Use Now: Nasal Cannula Appearance: 42 yo M in nAD, aAOx3 Eyes: No Scleral Icterus, PERRLA Ears/Nose/Mouth/Throat: NL Teeth, Lips, Gums, Mucous Membranes Moist, - - left tympanic memebrane with mild injection , no fluid in b/l middle ears noted. Neck: NL Appearance and Movements; NL JVP, Trachea Midline Respiratory: Symmetrical Chest Expansion and Respiratory Effort, - - diffuse rhonchi and wheezes b/l Cardiovascular: NL Sounds; No Murmurs; No JVD, RRR Abdominal: NL Sounds; No Tenderness; No Distention, No Hepatosplenomegaly Lymphatic: No Cervical Adenopathy Extremities: No Edema, No Clubbing, Cyanosis Skin: No Nodules or Sclerosis, - - small R calf wound at 2 cm in diam covered with eschar, no evidence of cellulitis Neurological: Alert and Oriented x 3, NL Muscle Strength and Tone Result Diagrams: 11/15/17 20:21 11/15/17 20:20 Microbiology and Other Data: Microbiology 11/16/17 00:35 Legionella Urinary Antigen - Final Urine Negative Legionella Antigen Streptococcus pneumoniae Ag Screen - Final Negative S. pneumo Antigen 11/16/17 01:30 Influenza Types A,B Antigen - Final Nasal Specimen received for Influenza A/B Molecular testing Assess/Plan/Problems-Billing Assessment: 42 yo M with h/o smoking, COPD, migraines, chronic pain, seizures presents with COPD exacerbation - Patient Problems (1) COPD exacerbation Comment: cont solu Medrol, Azithro and Ceftriaxone. No steroid taper yet. Still with significant wheezing today (2) Seizure disorder Comment: cont Keppra, Topamax (3) Chronic pain Comment: cont narcotics at home dose (4) DVT prophylaxis Comment: HSQ Status and Disposition: inpatient
[2017-11-16] MEDS: Aspirin TAB* 325 MG PO PRN ×2 (17:46→21:32)
[2017-11-16] MEDS ORDERED: cefTRIAXone(*) 1 GM in NS 0.9% 50 ML* 50 ML IVPB SCH (20:00)
[2017-11-16] MEDS ORDERED: Azithromycin IV(*) 500 MG in NS 0.9% 250 ML* 250 ML IVPB SCH (20:00)
[2017-11-16] MEDS: Dicyclomine CAP* 10 MG PO PRN (21:28)
[2017-11-16] MEDS: QUEtiapine TAB* 25 MG PO SCH (21:31)
[2017-11-16] MEDS: Montelukast Sodium TAB* 10 MG PO SCH (21:31)
[2017-11-17] MEDS: PROCHLORPERAZINE INJ 5 MG/ML 2 ML VIAL IV PRN ×3 (00:47→18:15)
[2017-11-17] MEDS: Azithromycin IV(*) 500 MG in NS 0.9% 250 ML* 250 ML IVPB SCH (02:09)
[2017-11-17] MEDS: Albuterol 2.5 MG/3 ML NEB.SOL* (0.083%) INH SCH ×5 (02:41→20:22)
[2017-11-17] MEDS: cefTRIAXone(*) 1 GM in NS 0.9% 50 ML* 50 ML IVPB SCH (03:48)
[2017-11-17] MEDS: Heparin VIAL(*) 5000 UNITS/ML VIAL (FIVE THOUSAND) SUBCUT SCH ×3 (06:02→20:26)
[2017-11-17] MEDS: methylPREDNISolone SOD 40 MG* 1 ML VIAL IV SCH (06:02)
[2017-11-17 06:50] LABS: Hematocrit 35 % (42-52); Hemoglobin 11.6 g/dl (14.0-18.0); Mean Corpuscular HGB Conc 33 g/dl (31-36); Mean Corpuscular Hemoglobin 31 pg (27-31); Mean Corpuscular Volume 93 fL (80-94); Mean Platelet Volume 7.5 um3 (7.4-10.4); Platelet Count 267 10^3/ul (150-450); Red Blood Count 3.74 10^6/ul (4.00-5.40); Red Cell Distribution Width 14 % (10.5-15); White Blood Count 13.2 10^3/ul (3.5-10.8)
[2017-11-17 07:19] LABS: ABS Basophils 0 10^3/ul (0-0.2); ABS Eosinophils 0 10^3/ul (0-0.6); ABS Lymphocytes 3.2 10^3/ul (1.0-4.8); ABS Monocytes 0.8 10^3/ul (0-0.8); ABS Neutrophils 9.2 10^3/ul (1.5-7.7)
[2017-11-17 07:25] LABS: ABS Basophils 0 10^3/ul (0-0.2); ABS Neutrophils 7.4 10^3/ul (1.5-7.7); Monocytes % 4 % (0-7)
[2017-11-17] MEDS: Tiotropium CAP.INH* CAP.INH/18 MCG (USE ORDER SET !) INH SCH (07:42)
[2017-11-17] MEDS: Mometasone/Formoter 200/5 MDI INH SCH ×2 (07:42→20:22)
--- NOTE | 2017-11-17 08:12 | PN ---
Subjective Date of Service: 11/17/17 Interval History: pt still c/o left ear pain. Had a migraine headache that is resolving. C/o "diarrhea" but had only 2 loose BM's yesterday Breathing "feels better". Objective Active Medications: Acetaminophen (Tylenol Tab*) 650 mg PO Q4H PRN PRN Reason: PAIN Last Admin: 11/16/17 21:29 Dose: 650 mg Albuterol (Ventolin 2.5 Mg/3 Ml Neb.Kathia*) 2.5 mg INH [id number] AWAKE [facility] Last Admin: 11/17/17 07:40 Dose: 2.5 mg Aspirin (Aspirin Tab*) 325 mg PO DAILY PRN PRN Reason: FEVER/HEADACHE Last Admin: 11/16/17 21:32 Dose: 325 mg Dicyclomine HCl (Bentyl Cap*) 10 mg PO QID PRN PRN Reason: DIARRHEA Last Admin: 11/16/17 21:28 Dose: 10 mg Divalproex Sodium (Depakote Dr Tab(*)) 1,000 mg PO BID [facility] Last Admin: 11/16/17 21:34 Dose: 1,000 mg Gabapentin (Neurontin Cap(*)) 400 mg PO TID [facility] Last Admin: 11/16/17 21:35 Dose: 400 mg Guaifenesin (Mucinex*) 1,200 mg PO BID [facility] Last Admin: 11/16/17 21:32 Dose: 1,200 mg Heparin Sodium (Porcine) (Heparin Vial(*)) 5,000 units SUBCUT Q8HR [facility] Last Admin: 11/17/17 06:02 Dose: 5,000 units Ceftriaxone Sodium 1 gm/ (Sodium Chloride) 50 mls @ 200 mls/hr IVPB Q24H [facility] Last Admin: 11/17/17 03:48 Dose: 200 mls/hr Azithromycin 500 mg/ Sodium (Chloride) 250 mls @ 250 mls/hr IVPB Q24H [facility] Last Admin: 11/17/17 02:09 Dose: 250 mls/hr Lactobacillus Rhamnosus (Lactobacillus Acidophilus*) 1 tab PO BID [facility] Last Admin: 11/16/17 21:31 Dose: 1 tab Levetiracetam (Keppra Tab*) 750 mg PO BID [facility] Last Admin: 11/16/17 21:27 Dose: 750 mg Methylprednisolone Sodium Succinate (Solu-Medrol 40 Mg) 40 mg IV Q8H [facility] Last Admin: 11/17/17 06:02 Dose: 40 mg Mometasone Furoate/Formoterol Fumar (Dulera 200/5 Mdi*) 2 puff INH BID [facility] Last Admin: 11/17/17 07:42 Dose: 2 puff Montelukast Sodium (Singulair Tab*) 10 mg PO BEDTIME [facility] Last Admin: 11/16/17 21:31 Dose: 10 mg Morphine Sulfate (Morphine Inj ((Syringe))*) 4 mg IV Q4H PRN PRN Reason: PAIN - MILD Last Admin: 11/16/17 12:45 Dose: 4 mg Ondansetron HCl (Zofran Inj*) 4 mg IV Q6H PRN PRN Reason: NAUSEA Last Admin: 11/16/17 23:00 Dose: 4 mg Oxymorphone HCl (Opana Ir (Nf)) 10 mg PO QID [facility] Last Admin: 11/16/17 21:33 Dose: 10 mg Oxymorphone HCl (Opana Er (Nf)) 10 mg PO Q12HR [facility] Last Admin: 11/16/17 22:32 Dose: 10 mg Prochlorperazine Edisylate (Compazine Inj*) 10 mg IV Q6H PRN PRN Reason: NAUSEA/VOMITING Last Admin: 11/17/17 00:47 Dose: 10 units Quetiapine Fumarate (Seroquel Tab*) 50 mg PO BEDTIME [facility] Last Admin: 11/16/17 21:31 Dose: 50 mg Tiotropium [place] (Spiriva Cap.Inh*) 1 cap INH DAILY [facility] Last Admin: 11/17/17 07:42 Dose: 1 cap Topiramate (Topamax(*)) 200 mg PO BID [facility] Last Admin: 11/16/17 21:30 Dose: 200 mg Vital Signs - 8 hr 11/17/17 11/17/17 11/17/17 03:00 03:03 07:49 Temperature 97.8 F Pulse Rate 104 56 Respiratory 16 16 14 Rate Blood Pressure 114/66 (mmHg) O2 Sat by Pulse 97 94 Oximetry Oxygen Devices in Use Now: None Appearance: 42 yo M in nAD, aAOx3 Eyes: No Scleral Icterus, PERRLA Ears/Nose/Mouth/Throat: NL Teeth, Lips, Gums, Mucous Membranes Moist, - - left tympanic membarane with mild injection Neck: NL Appearance and Movements; NL JVP, Trachea Midline Respiratory: Symmetrical Chest Expansion and Respiratory Effort, - - scattered rhonchi and wheezes mid to lower lungs b/l-much improved from yesterday Cardiovascular: NL Sounds; No Murmurs; No JVD, RRR Abdominal: NL Sounds; No Tenderness; No Distention Lymphatic: No Cervical Adenopathy Extremities: No Edema, No Clubbing, Cyanosis, - Skin: No Nodules or Sclerosis, - - R distal leg abrasion (at 1-2 cm )covered with eschar-no evidence of cellulitis Neurological: Alert and Oriented x 3, NL Muscle Strength and Tone Result Diagrams: 11/17/17 06:14 11/17/17 06:14 Microbiology and Other Data: Microbiology 11/16/17 00:35 Legionella Urinary Antigen - Final Urine Negative Legionella Antigen Streptococcus pneumoniae Ag Screen - Final Negative S. pneumo Antigen 11/16/17 01:30 Influenza Types A,B Antigen - Final Nasal Specimen received for Influenza A/B Molecular testing Assess/Plan/Problems-Billing Assessment: 42 yo M with h/o smoking, COPD, migraines, chronic pain, seizures presents with COPD exacerbation - Patient Problems (1) COPD exacerbation Comment: cont Azithro and Ceftriaxone. solu Medrol will be changed to Prednisone PO today No steroid taper yet. Still with significant wheezing today today noted leukocytosis with myelocytes on differential-suspect secondary to steroids, but will cont to monitor (2) Seizure disorder Comment: cont Keppra, Topamax (3) Chronic pain Comment: cont narcotics at home dose (4) DVT prophylaxis Comment: HSQ Status and Disposition: inpatient, likely discharge tomorrow
[2017-11-17] MEDS: guaiFENesin ER TAB 600 MG PO SCH ×2 (08:41→20:21)
[2017-11-17] MEDS: Topiramate TAB(*) 100 MG PO SCH ×2 (08:41→20:19)
[2017-11-17] MEDS: Oxymorphone IR (NF) 5 MG TAB PO SCH ×4 (08:41→20:20)
[2017-11-17] MEDS: Oxymorphone ER (NF) 5 MG TAB PO SCH ×2 (08:42→20:23)
[2017-11-17] MEDS: Gabapentin CAP(*) 400 MG PO SCH ×3 (08:43→20:19)
[2017-11-17] MEDS: Lactobacillus Acidophilus* 1 TAB PO SCH ×2 (08:44→20:19)
[2017-11-17] MEDS: levETIRAcetam TAB* 500 MG PO SCH ×2 (08:44→20:25)
[2017-11-17] MEDS: predniSONE TAB* 20 MG PO SCH (08:44)
[2017-11-17] MEDS: Divalproex DR TAB(*) 500 MG PO SCH ×2 (08:44→20:22)
[2017-11-17] MEDS: Acetaminophen TAB* 325 MG PO PRN ×2 (15:16→20:23)
[2017-11-17] MEDS: Aspirin TAB* 325 MG PO PRN ×2 (15:17→20:24)
[2017-11-17] MEDS: Ondansetron INJ* 2 MG/ML VIAL IV PRN (20:17)
[2017-11-17] MEDS: Montelukast Sodium TAB* 10 MG PO SCH (20:21)
[2017-11-17] MEDS: QUEtiapine TAB* 25 MG PO SCH (20:22)
[2017-11-17] MEDS: Dicyclomine CAP* 10 MG PO PRN (20:24)
[2017-11-18] MEDS: Albuterol 2.5 MG/3 ML NEB.SOL* (0.083%) INH SCH ×5 (00:45→14:29)
[2017-11-18] MEDS: PROCHLORPERAZINE INJ 5 MG/ML 2 ML VIAL IV PRN ×2 (01:54→08:43)
[2017-11-18] MEDS: Azithromycin IV(*) 500 MG in NS 0.9% 250 ML* 250 ML IVPB SCH (01:54)
[2017-11-18] MEDS: cefTRIAXone(*) 1 GM in NS 0.9% 50 ML* 50 ML IVPB SCH (03:16)
[2017-11-18] MEDS: Heparin VIAL(*) 5000 UNITS/ML VIAL (FIVE THOUSAND) SUBCUT SCH (05:41)
[2017-11-18 07:05] LABS: Hematocrit 34 % (42-52); Hemoglobin 11.3 g/dl (14.0-18.0); Mean Corpuscular HGB Conc 34 g/dl (31-36); Mean Corpuscular Hemoglobin 32 pg (27-31); Mean Corpuscular Volume 93 fL (80-94); Mean Platelet Volume 7.2 um3 (7.4-10.4); Platelet Count 254 10^3/ul (150-450); Red Blood Count 3.58 10^6/ul (4.00-5.40); Red Cell Distribution Width 14 % (10.5-15); White Blood Count 11.8 10^3/ul (3.5-10.8)
[2017-11-18 07:20] LABS: EGFR Non-African American 102.5 (>60)
[2017-11-18 07:33] LABS: ABS Basophils 0 10^3/ul (0-0.2); ABS Eosinophils 0 10^3/ul (0-0.6); ABS Lymphocytes 4.3 10^3/ul (1.0-4.8); ABS Monocytes 0.8 10^3/ul (0-0.8); ABS Neutrophils 6.6 10^3/ul (1.5-7.7)
[2017-11-18 07:36] LABS: ABS Basophils 0 10^3/ul (0-0.2); Monocytes % 7 % (0-7)
[2017-11-18] MEDS: Tiotropium CAP.INH* CAP.INH/18 MCG (USE ORDER SET !) INH SCH ×2 (07:52→11:53)
[2017-11-18] MEDS: Mometasone/Formoter 200/5 MDI INH SCH (07:52)
[2017-11-18] MEDS: Oxymorphone ER (NF) 5 MG TAB PO SCH (08:30)
[2017-11-18] MEDS: predniSONE TAB* 20 MG PO SCH (08:32)
[2017-11-18] MEDS: Lactobacillus Acidophilus* 1 TAB PO SCH (08:32)
[2017-11-18] MEDS: Topiramate TAB(*) 100 MG PO SCH (08:32)
[2017-11-18] MEDS: Divalproex DR TAB(*) 500 MG PO SCH (08:32)
[2017-11-18] MEDS: guaiFENesin ER TAB 600 MG PO SCH (08:33)
[2017-11-18] MEDS: levETIRAcetam TAB* 500 MG PO SCH (08:33)
[2017-11-18] MEDS: Gabapentin CAP(*) 400 MG PO SCH (08:33)
[2017-11-18] MEDS: Oxymorphone IR (NF) 5 MG TAB PO SCH ×2 (08:34→12:35)
[2017-11-18] MEDS: Aspirin TAB* 325 MG PO PRN (08:42)
[2017-11-18] MEDS: Acetaminophen TAB* 325 MG PO PRN (08:42)
[2017-11-18 11:34] VITALS: BP 110/62
--- NOTE | 2017-11-18 21:14 | DS ---
DISCHARGE SUMMARY: DATE OF ADMISSION: 11/16/17 DATE OF DISCHARGE: 11/18/17 ADMITTING PROVIDER: Paula Ma DO ATTENDING PHYSICIAN ON DAY OF DISCHARGE: Brent Jansen MD PRIMARY CARE PROVIDER: Geraldine An MD CHIEF COMPLAINT: Shortness of breath. PRINCIPAL DIAGNOSIS: Chronic obstructive pulmonary disease exacerbation. HISTORY OF PRESENT ILLNESS: Madhu Marx is a 42-year-old male with past medical history of COPD, asthma, seasonal allergies, seizure disorder, chronic opioid medication use. Please see H and P of Dr. Paula Ma for full details, but the patient stated he had 3 to 4 days of cough, shortness of breath that he thought was a head cold. He started to develop thick brown, tracy sputum. On the day of admission, he had a fever and then diaphoresis and then teeth chattering chills. His girlfriend thought he looked pale, struggling to breathe. His oxygen levels checked and found to be 87% on room air. He was brought to the emergency room for further evaluation. He had no leukocytosis. Initially, temperature was 98.1. He was intermittently tachypneic up to RR 39, hospital day #1 and required 2 L nasal cannula oxygen. He was normotensive. He had a chest x-ray, which demonstrated no evidence of acute cardiopulmonary disease. His pulmonary exam was noted to be rhonchus throughout with expiratory wheezing and coughing with deep breath. He was admitted for COPD exacerbation, placed on Solu-Medrol 40 mg q.8 hours on the hospital day #1, followed by prednisone 60 mg daily. He received ceftriaxone and azithromycin IV. He is to be discharged on a few more days of azithromycin. He was continued on his inhalers including Singulair, Dulera, Ventolin, and ipratropium. He had negative flu swab, negative Legionella and Streptococcus pneumoniae urinary antigens. Blood cultures have been negative x2 days. He was quickly able to weaned off of supplementary oxygen. On day of discharge, he was without any wheezing, moving air well in bilateral lungs though did have some coughing with deep breath still. He is being discharged with close followup recommended with his primary care provider, Dr. Geraldine An. He also states that he has had pulmonology workup in the [place] area though not recently, he is recommended a followup with them as well. Of note, the patient reportedly was frequently asking for pain meds for headaches and yet numerous documentations by nurse's notes and this provider that patient was frankly having hard times staying awake after his pain medications. His prescription monitoring program through [facility] was checked, reference number, [id number] and he has been seeing Dr. Sven Beauchamp through the last at least 12 months for his oxymorphone 10 mg 4 times a day, oxymorphone extended release 10 mg b.i.d. He, of note, missed his planned right hip arthroplasty with Dr. Mora due to this admission. Hopefully with addressing his osteoarthritis and his joints, he can start to be weaned off these opioid medications. DISCHARGE MEDICATIONS: Include: 1. Azithromycin 250 mg p.o. daily for 2 more tabs (new). 2. Cetirizine 10 mg p.o. q.a.m. 3. Depakote 500 mg 2 tablets p.o. b.i.d. 4. Bentyl 10 mg p.o. 4 times a day. 5. Epinephrine 0.3 mg IM once p.r.n. 6. Gabapentin 400 mg t.i.d. 7. Guaifenesin 1200 mg p.o. b.i.d. 8. Ipratropium 2 puffs inhaled b.i.d. 9. Keppra 750 mg p.o. b.i.d. 10. Lactobacillus acidophilus 1 tab p.o. b.i.d. for 20 tabs (new). 11. Metformin 500 mg p.o. b.i.d. 12. Dulera 2 puffs inhaled b.i.d. 13. Singulair 10 mg p.o. at bedtime. 14. Naproxen 550 mg p.o. b.i.d. p.r.n. 15. Zofran 4 mg p.o. q.6 hours p.r.n. (new). 16. Oxymorphone 10 mg p.o. 4 times a day p.r.n. 17. Oxymorphone extended release 10 mg p.o. b.i.d. 18. Prednisone 20 mg tabs to be taken, 40 mg for the next 4 days and 20 mg for the next 4 days and then off (new). 19. Seroquel 50 mg p.o. q.h.s. 20. Topamax 200 mg p.o. b.i.d. 21. Ventolin 2 puffs inhaled 4 times a day. DISCHARGE DIET: Carbohydrate consistent. FOLLOWUP: Please follow up with Dr. Geraldine An within 4 to 7 days and his [facility] night auditor within 1 month. He will also need to reschedule of his right hip arthroplasty surgery with Dr. Mora. TIME SPENT: On discharge 35 minutes. [id number]/[facility] #: [id number] LIZZ
== END 2017-11-18 14:00 | disposition home or self-care (01) | DRG 192 ==
LOC: ED 18:42 → MED 11-16 00:14
PROVIDERS: ADMIT Hospitalist; ATTEND Internal Medicine
DX: J44.1 Chronic obstructive pulmonary disease with (acute) exacerbation (principal); J30.2 Other seasonal allergic rhinitis; G40.909 Epilepsy, unspecified, not intractable, without status epilepticus; F11.90 Opioid use, unspecified, uncomplicated; M16.11 Unilateral primary osteoarthritis, right hip; G43.909 Migraine, unspecified, not intractable, without status migrainosus; G89.29 Other chronic pain; M54.5 Low back pain; R73.03 Prediabetes; I10 Essential (primary) hypertension; H53.50 Unspecified color vision deficiencies; F31.9 Bipolar disorder, unspecified; F17.210 Nicotine dependence, cigarettes, uncomplicated; H92.02 Otalgia, left ear; R19.7 Diarrhea, unspecified; D72.829 Elevated white blood cell count, unspecified; Z79.84 Long term (current) use of oral hypoglycemic drugs; Z88.2 Allergy status to sulfonamides; Z91.030 Bee allergy status; Z82.5 Family history of asthma and other chronic lower respiratory diseases; Z90.49 Acquired absence of other specified parts of digestive tract; Z82.49 Family history of ischemic heart disease and other diseases of the circulatory system; Z83.3 Family history of diabetes mellitus; Z82.0 Family history of epilepsy and other diseases of the nervous system
CPT/HCPCS: 36415; 71046; 80048; 80053; 81003; 82550; 82553; 82803; 83605; 83880; 84145; 84484; 85025; 86140; 87040; 87205; 87899; 93005; 94640; 99285; A9270-GY; J0456; J0696; J0780; J1644; J2270; J2405; J2765; J2920; J2930; J7512

== ENCOUNTER 2020-06-03 15:47 | Inpatient (IN) ==
[2020-06-03] MEDS ORDERED: NS 0.9% 1000 ml BAG 1,000 ML IV ONE (16:20)
[2020-06-03] MEDS ORDERED: Iodixanol (CONTRAST) 320 MG/ML 100 ML SDV IV ONE (16:57)
[2020-06-03 17:06] LABS: ABS Eosinophils 0.1 10^3/ul (0-0.6); ABS Lymphocytes 2.8 10^3/ul (1.0-4.8); ABS Monocytes 0.5 10^3/ul (0-0.8); ABS Neutrophils 2.6 10^3/ul (1.5-7.7); Hematocrit 37 % (42-52); Hemoglobin 12.5 g/dL (14.0-18.0); Lymphocyte % 46.3 %; Mean Corpuscular HGB Conc 34 g/dL (31-36); Mean Corpuscular Hemoglobin 32 pg (27-31); Mean Corpuscular Volume 94 fL (80-94); Platelet Count 248 10^3/uL (150-450); Red Blood Count 3.93 10^6 /uL (4.18-5.48); Red Cell Distribution Width 14 % (10-15)
[2020-06-03 17:26] LABS: Activated Partial Thrombo Time 42.2 seconds (26.0-38.0); INR 1.01 (0.82-1.09)
[2020-06-03 17:33] LABS: Albumin 4.2 g/dL (3.2-5.2); Albumin/Globulin Ratio 1.4 (1-3); BUN/Creatinine Ratio 14.9 (8-20); EGFR African American 104.5 (>60); EGFR Non-African American 86.4 (>60); HDL Cholesterol 43.3 mg/dL; Potassium 3.5 mmol/L (3.5-5.0); Total Bilirubin 0.3 mg/dL (0.2-1.0); Total Protein 7.2 g/dL (6.4-8.9)
[2020-06-03] MEDS ORDERED: cefTRIAXone 1 gm/50 mL NS BAG 1 GM/50 ML BAG IV ONE (17:48)
[2020-06-03] MEDS ORDERED: Azithromycin 500 mg/250 ml NS 500 MG/250 ML BAG IVPB ONE (17:48)
[2020-06-03 17:49] LABS: Urine Appearance Clear; Urine Bilirubin Negative (Negative); Urine Blood Negative (Negative); Urine Color Yellow; Urine Glucose Negative (Negative); Urine Ketones Negative (Negative); Urine Nitrite Negative (Negative); Urine Protein Negative (Negative); Urine Specific Gravity 1.027 (1.010-1.030); Urine Urobilinogen Negative (Negative)
[2020-06-03] MEDS ORDERED: OXYMORPHONE IR 5 MG PO PRN (21:44)
[2020-06-03] MEDS ORDERED: Albuterol HFA INHALER 8 gm MDI INH PRN (22:36)
[2020-06-04 05:11] LABS: HIV 4th Generation Nonreactive (Nonreactive)
[2020-06-04] MEDS ORDERED: Magnesium Sulfate 2 gm BAG 2 GM/50 ML BAG IVPB ONE (16:09)
[2020-06-04 19:42] VITALS: BP 118/75
[2020-06-04] MEDS ORDERED: Mometasone/Formoter 200/5 MDI INH SCH (21:00)
[2020-06-07 12:39] LABS: Levetiracetam 21.6 mcg/mL
[2020-06-08 08:08] LABS: Topiramate <1.0 mcg/mL
== END 2020-06-04 20:15 | disposition home or self-care (01) | DRG 948 ==
LOC: ED 15:47 → MEDTELE 20:19
PROVIDERS: ADMIT Internal Medicine; ATTEND Internal Medicine

== ENCOUNTER 2023-11-29 09:56 | Inpatient (IN) ==
[2023-11-29 11:17] LABS: ABS Lymphocytes 0.9 10^3/uL (1.0-4.8); ABS Monocytes 0.7 10^3/uL (0.0-1.1); ABS Neutrophils 4.9 10^3/uL (1.5-7.6); Eosinophil % 0.2 %; Hematocrit 27.8 % (38-53); Hemoglobin 9.1 g/dL (13.2-16.3); Lymphocyte % 13.7 %; Mean Corpuscular Hemoglobin 28.8 pg (27-33); Mean Corpuscular Hgb Conc 32.6 g/dL (31-36); Mean Corpuscular Volume 88.1 fL (80-97); Mean Platelet Volume 6.9 fL (7.5-11.2); Nucleated Red Blood Cells % 0.1 %/100WBC (0.0-0.8); Platelet Count 207 10^3/uL (150-450); Red Blood Count 3.15 10^6/uL (4.06-5.63); Red Cell Distribution Width 16.2 % (12-17); White Blood Count 6.5 10^3/uL (3.6-10.2)
[2023-11-29 11:25] LABS: Activated Partial Thrombo Time 39.3 seconds (26.0-38.0); INR 1.57 (0.85-1.14)
[2023-11-29 11:53] LABS: Albumin 3.1 g/dL (3.2-5.2); C Reactive Protein 118.09 mg/L (<8.01); Calcium 8.5 mg/dL (8.6-10.3); Creatinine, Serum 0.82 mg/dL (0.67-1.17); Globulin 3.1 g/dL (2-4); Potassium 2.8 mmol/L (3.5-5.0); Total Bilirubin 0.6 mg/dL (0.2-1.0); Total Protein 6.2 g/dL (6.4-8.9); eGFR CKD-EPI 107.7 (>60)
[2023-11-29] MEDS: Lactated Ringers 1000 ml BAG 1,000 ML IV ONE ×2 (12:03→20:33)
[2023-11-29 12:43] LABS: High Sensitivity Troponin 1 Hr 4 pg/mL (<20)
[2023-11-29] MEDS: Potassium Chlor 20 meq TAB.ER PO ONE (13:12)
[2023-11-29] MEDS ORDERED: Albuterol HFA INHALER 8 gm MDI INH PRN (16:17)
[2023-11-29] MEDS ORDERED: AUTO INJECTOR SUBCUT SCH (16:30)
[2023-11-29] MEDS ORDERED: FREMANEZUMAB VFRM 225 MG/1.5 ML SUBCUT SCH (16:30)
[2023-11-29] MEDS: Iohexol 350 (CONTRAST) 500 ML MDV IV ONE (16:55)
[2023-11-29] MEDS ORDERED: Vancomycin per Pharmacy 1 EA NOTE FOLLOW UP SCH ×2 (17:00→18:00)
[2023-11-29] MEDS ORDERED: diazePAM INJ CARPUJECT 5 MG/ML SYRINGE IV PRN (17:16)
[2023-11-29] MEDS ORDERED: Vancomycin per Pharmacy 1 EA NOTE FOLLOW UP PRN (17:19)
[2023-11-29] MEDS: Lactated Ringers 1000 ml BAG 1,000 ML IV SCH ×2 (18:24→23:50)
[2023-11-29] MEDS: Cefepime 1 GM in Dextrose 1 GM/50 ML BAG IV SCH (18:24)
[2023-11-29 19:54] LABS: Ferritin 36.9 ng/mL (24-336)
[2023-11-29 19:58] LABS: Folate 7.8 ng/mL (5.90-24.80)
[2023-11-29] MEDS ORDERED: CMC:Minocycline 50 mg CAP (NF) PO SCH (21:00)
[2023-11-29] MEDS ORDERED: LEVETIRACETAM 750 MG PO SCH (21:00)
[2023-11-29] MEDS: Gadoteridol (CONTRAST) 279.3 MG/ML 10 ML IV ONE (22:09)
[2023-11-30 00:05] LABS: Hematocrit 28.8 % (38-53); Hemoglobin 9.2 g/dL (13.2-16.3)
[2023-11-30] MEDS: Vancomycin 1,500 MG in NS 0.9% 250 ml 250 ML IVPB ONE (00:19)
[2023-11-30] MEDS: Calcium Polycarbophil 625mg TB PO SCH (00:22)
[2023-11-30] MEDS: DULoxetine DR 30 mg CAP PO SCH (00:24)
[2023-11-30] MEDS: Morphine ORAL.SOLN 10 mg 2 mg/ml UDC 5 ml (10 mg) PO SCH (00:25)
[2023-11-30 01:32] LABS: HDL Cholesterol 30.1 mg/dL
[2023-11-30] MEDS: Vancomycin 1000 MG in NS 0.9% 250 ML IVPB SCH ×2 (02:48→23:22)
[2023-11-30 06:18] LABS: ABS Lymphocytes 1.1 10^3/uL (1.0-4.8); ABS Monocytes 0.7 10^3/uL (0.0-1.1); ABS Neutrophils 3.9 10^3/uL (1.5-7.6); ABS Nucleated RBC 0.01 10^3/ul; Eosinophil % 0.8 %; Hematocrit 26.9 % (38-53); Hemoglobin 8.3 g/dL (13.2-16.3); Lymphocyte % 19.7 %; Mean Corpuscular Hemoglobin 27.7 pg (27-33); Mean Corpuscular Hgb Conc 30.8 g/dL (31-36); Mean Corpuscular Volume 89.8 fL (80-97); Mean Platelet Volume 7.3 fL (7.5-11.2); Nucleated Red Blood Cells % 0.1 %/100WBC (0.0-0.8); Platelet Count 184 10^3/uL (150-450); Red Cell Distribution Width 16.8 % (12-17); White Blood Count 5.8 10^3/uL (3.6-10.2)
[2023-11-30 06:46] LABS: Calcium 8.3 mg/dL (8.6-10.3); Creatinine, Serum 0.63 mg/dL (0.67-1.17); Magnesium 1.9 mg/dL (1.9-2.7); Potassium 3.3 mmol/L (3.5-5.0); eGFR CKD-EPI 116.6 (>60)
[2023-11-30] MEDS: Tiotropium Brom/Olodaterol MDI (ACUTE) INH SCH (07:36)
[2023-11-30] MEDS: Cefepime 2 GM in Dextrose 2 GM/50 ML BAG IV SCH (12:14)
[2023-11-30] MEDS: Potassium Chloride LIQUID 20 MEQ/15 ML LIQUID PO ONE (12:18)
[2023-11-30] MEDS: Morphine 2 MG/ML SYRINGE IV PRN (15:30)
[2023-11-30] MEDS: Vancomycin Trough Check NOTE FOLLOW UP ONE (19:00)
[2023-11-30] MEDS: Senna TAB 8.6 mg TAB PO SCH (20:48)
[2023-12-01 05:31] LABS: Urine Appearance Clear; Urine Bilirubin Negative (Negative); Urine Blood Negative (Negative); Urine Color Light-Yellow; Urine Glucose Negative (Negative); Urine Ketones Negative (Negative); Urine Nitrite Negative (Negative); Urine Protein Negative (Negative); Urine Specific Gravity 1.013 (1.002-1.030); Urine Urobilinogen Negative (Negative); Urine pH 7.5 (5.0-8.0)
[2023-12-01 06:47] LABS: ABS Eosinophils 0.1 10^3/uL (0.0-0.5); ABS Lymphocytes 1.6 10^3/uL (1.0-4.8); ABS Monocytes 0.5 10^3/uL (0.0-1.1); Hematocrit 24.7 % (38-53); Hemoglobin 7.9 g/dL (13.2-16.3); Lymphocyte % 37.3 %; Mean Corpuscular Hemoglobin 28.9 pg (27-33); Mean Corpuscular Hgb Conc 31.9 g/dL (31-36); Mean Corpuscular Volume 90.4 fL (80-97); Mean Platelet Volume 7.1 fL (7.5-11.2); Nucleated Red Blood Cells % 0.1 %/100WBC (0.0-0.8); Platelet Count 164 10^3/uL (150-450); Red Blood Count 2.73 10^6/uL (4.06-5.63); Red Cell Distribution Width 16.8 % (12-17); White Blood Count 4.2 10^3/uL (3.6-10.2)
[2023-12-01 07:02] LABS: Albumin 2.4 g/dL (3.2-5.2); Creatinine, Serum 0.48 mg/dL (0.67-1.17); Globulin 2.4 g/dL (2-4); Potassium 3.5 mmol/L (3.5-5.0); Total Bilirubin 0.3 mg/dL (0.2-1.0); Total Protein 4.8 g/dL (6.4-8.9); eGFR CKD-EPI 126.6 (>60)
[2023-12-01 10:40] LABS: C Reactive Protein 63.48 mg/L (<8.01)
[2023-12-01] MEDS: Ferric Gluconate IV 125 MG in NS 0.9% 100 ml BAG 100 ML IVPB ONE (11:22)
[2023-12-01] MEDS: Amoxicillin/Clavul 875/125 TAB (Augmentin 875 tab) PO SCH (22:01)
[2023-12-02 06:55] LABS: ABS Eosinophils 0.1 10^3/uL (0.0-0.5); ABS Lymphocytes 1.6 10^3/uL (1.0-4.8); ABS Monocytes 0.7 10^3/uL (0.0-1.1); ABS Neutrophils 2.1 10^3/uL (1.5-7.6); Eosinophil % 2.7 %; Hematocrit 23.8 % (38-53); Hemoglobin 7.6 g/dL (13.2-16.3); Lymphocyte % 35.3 %; Mean Corpuscular Hemoglobin 28.7 pg (27-33); Mean Corpuscular Hgb Conc 31.8 g/dL (31-36); Mean Corpuscular Volume 90.3 fL (80-97); Mean Platelet Volume 6.8 fL (7.5-11.2); Platelet Count 180 10^3/uL (150-450); Red Blood Count 2.64 10^6/uL (4.06-5.63); Red Cell Distribution Width 16.6 % (12-17); White Blood Count 4.6 10^3/uL (3.6-10.2)
[2023-12-02 07:09] LABS: Albumin 2.4 g/dL (3.2-5.2); Calcium 8.4 mg/dL (8.6-10.3); Creatinine, Serum 0.48 mg/dL (0.67-1.17); Globulin 2.4 g/dL (2-4); Potassium 3.7 mmol/L (3.5-5.0); Total Bilirubin 0.3 mg/dL (0.2-1.0); Total Protein 4.8 g/dL (6.4-8.9); eGFR CKD-EPI 126.6 (>60)
[2023-12-02] MEDS: Ferric Gluconate IV 250 MG in NS 0.9% 250 ml 200 ML IVPB ONE (08:00)
[2023-12-02] MEDS ORDERED: Vancomycin Trough Check NOTE FOLLOW UP ONE (10:30)
[2023-12-02] MEDS: Ferric Gluconate IV 250 MG in NS 0.9% 250 ml 200 ML IVPB SCH (10:43)
[2023-12-03 06:20] LABS: ABS Eosinophils 0.1 10^3/uL (0.0-0.5); ABS Lymphocytes 1.5 10^3/uL (1.0-4.8); ABS Monocytes 0.5 10^3/uL (0.0-1.1); ABS Neutrophils 1.7 10^3/uL (1.5-7.6); ABS Nucleated RBC 0.01 10^3/ul; Eosinophil % 2.4 %; Hematocrit 24.5 % (38-53); Hemoglobin 7.6 g/dL (13.2-16.3); Lymphocyte % 39.7 %; Mean Corpuscular Hemoglobin 28.2 pg (27-33); Mean Corpuscular Volume 90.9 fL (80-97); Mean Platelet Volume 7.1 fL (7.5-11.2); Nucleated Red Blood Cells % 0.2 %/100WBC (0.0-0.8); Platelet Count 185 10^3/uL (150-450); Red Blood Count 2.69 10^6/uL (4.06-5.63); Red Cell Distribution Width 16.7 % (12-17); White Blood Count 3.8 10^3/uL (3.6-10.2)
[2023-12-03 06:32] LABS: Calcium 8.7 mg/dL (8.6-10.3); Creatinine, Serum 0.47 mg/dL (0.67-1.17); Magnesium 1.7 mg/dL (1.9-2.7); eGFR CKD-EPI 127.4 (>60)
[2023-12-03 16:11] LABS: Hematocrit 25.9 % (38-53); Hemoglobin 8.1 g/dL (13.2-16.3)
[2023-12-03] MEDS: Magnesium Sulfate 2 gm BAG 2 GM/50 ML BAG IVPB ONE (17:16)
[2023-12-03 23:42] LABS: Hematocrit 24.9 % (38-53); Hemoglobin 7.7 g/dL (13.2-16.3)
[2023-12-04 06:51] LABS: Hematocrit 25.1 % (38-53)
[2023-12-04 07:45] LABS: ABS Eosinophils 0.2 10^3/uL (0.0-0.5); ABS Lymphocytes 1.6 10^3/uL (1.0-4.8); ABS Monocytes 0.5 10^3/uL (0.0-1.1); ABS Neutrophils 2.1 10^3/uL (1.5-7.6); ABS Nucleated RBC 0.01 10^3/ul; Eosinophil % 4.2 %; Lymphocyte % 35.9 %; Mean Corpuscular Hemoglobin 29.1 pg (27-33); Mean Corpuscular Hgb Conc 31.7 g/dL (31-36); Mean Corpuscular Volume 91.5 fL (80-97); Mean Platelet Volume 6.6 fL (7.5-11.2); Nucleated Red Blood Cells % 0.2 %/100WBC (0.0-0.8); Platelet Count 190 10^3/uL (150-450); Red Blood Count 2.75 10^6/uL (4.06-5.63); Red Cell Distribution Width 16.9 % (12-17); White Blood Count 4.3 10^3/uL (3.6-10.2)
[2023-12-04 07:54] LABS: Creatinine, Serum 0.53 mg/dL (0.67-1.17); Potassium 3.9 mmol/L (3.5-5.0); eGFR CKD-EPI 122.9 (>60)
[2023-12-04 07:55] LABS: Calcium 8.6 mg/dL (8.6-10.3)
[2023-12-04] MEDS: PEG 3000 GI LAVAGE 1 GALLON PO ONE (17:40)
[2023-12-04 23:27] LABS: Hematocrit 32.2 % (38-53)
[2023-12-05] MEDS: PTO:RIMEGEPANT SULFATE 75 MG ODT TAB (NF) PO PRN (00:26)
[2023-12-05 06:07] LABS: Albumin 3.2 g/dL (3.2-5.2); Albumin/Globulin Ratio 1.1 (1-3); Calcium 9.4 mg/dL (8.6-10.3); Creatinine, Serum 0.54 mg/dL (0.67-1.17); Total Bilirubin 0.4 mg/dL (0.2-1.0); Total Protein 6.2 g/dL (6.4-8.9); eGFR CKD-EPI 122.2 (>60)
[2023-12-05 06:10] LABS: ABS Eosinophils 0.3 10^3/uL (0.0-0.5); ABS Lymphocytes 1.3 10^3/uL (1.0-4.8); ABS Monocytes 0.4 10^3/uL (0.0-1.1); ABS Neutrophils 2.7 10^3/uL (1.5-7.6); ABS Nucleated RBC 0.01 10^3/ul; Eosinophil % 5.7 %; Hemoglobin 9.3 g/dL (13.2-16.3); Lymphocyte % 27.6 %; Mean Corpuscular Hemoglobin 28.6 pg (27-33); Mean Corpuscular Hgb Conc 30.9 g/dL (31-36); Mean Corpuscular Volume 92.6 fL (80-97); Mean Platelet Volume 6.7 fL (7.5-11.2); Nucleated Red Blood Cells % 0.2 %/100WBC (0.0-0.8); Platelet Count 221 10^3/uL (150-450); Red Blood Count 3.25 10^6/uL (4.06-5.63); Red Cell Distribution Width 16.8 % (12-17); White Blood Count 4.7 10^3/uL (3.6-10.2)
[2023-12-05 08:40] LABS: INR 1.17 (0.85-1.14)
[2023-12-05] MEDS: PEG 3000 GI LAVAGE 1 GALLON PO ONE (09:29)
[2023-12-05] MEDS ORDERED: Dextrose 50% Syringe 50 ml 25 GM/50 ML SYRINGE IV PUSH ONE (10:17)
[2023-12-05 10:22] LABS: Urine Alcohol Negative mg/dL (Cutoff: 10); Urine Barbiturates Negative; Urine Benzodiazepines Negative; Urine Cocaine Negative; Urine Methadone Negative (Negative); Urine Opiates Presumptive Positive ng/mL (Negative); Urine Phencyclidine Negative ng/mL (Cutoff: 25); Urine Tetrahydrocannabinol Negative ng/mL (Cutoff: 50)
[2023-12-05] MEDS: D5W 1/2 NS 1000 ml BAG 1,000 ML IV ONE (11:27)
[2023-12-05] MEDS ORDERED: fentaNYL 100 mcg/2 ml 50 MCG/ML VIAL ONE (18:07)
[2023-12-05] MEDS ORDERED: Phenylephrine 40 mcg/mL 10mL (400mcg) SYRINGE ONE ×2 (18:15→18:29)
[2023-12-05] MEDS ORDERED: Lidocaine 2% PF 5 ML VIAL ONE (18:15)
[2023-12-05] MEDS ORDERED: Propofol 10 MG/ML 20 ML BTL ONE (18:33)
[2023-12-05] MEDS: Pantoprazole VIAL 40 MG VIAL IV SCH (20:15)
[2023-12-05] MEDS: Lidocaine PATCH 5% PATCH TRANSDERM PRN (23:56)
[2023-12-06 06:24] LABS: ABS Eosinophils 0.2 10^3/uL (0.0-0.5); ABS Lymphocytes 1.8 10^3/uL (1.0-4.8); ABS Monocytes 0.4 10^3/uL (0.0-1.1); ABS Neutrophils 2.4 10^3/uL (1.5-7.6); ABS Nucleated RBC 0.01 10^3/ul; Eosinophil % 3.5 %; Hematocrit 28.9 % (38-53); Hemoglobin 9.1 g/dL (13.2-16.3); Lymphocyte % 37.4 %; Mean Corpuscular Hemoglobin 29.3 pg (27-33); Mean Corpuscular Hgb Conc 31.6 g/dL (31-36); Mean Corpuscular Volume 92.7 fL (80-97); Mean Platelet Volume 6.6 fL (7.5-11.2); Nucleated Red Blood Cells % 0.1 %/100WBC (0.0-0.8); Platelet Count 200 10^3/uL (150-450); Red Blood Count 3.12 10^6/uL (4.06-5.63); Red Cell Distribution Width 17.3 % (12-17); White Blood Count 4.8 10^3/uL (3.6-10.2)
[2023-12-06 07:12] LABS: Calcium 9.4 mg/dL (8.6-10.3); Creatinine, Serum 0.67 mg/dL (0.67-1.17); Magnesium 2.1 mg/dL (1.9-2.7); Potassium 4.3 mmol/L (3.5-5.0); eGFR CKD-EPI 114.5 (>60)
[2023-12-06 09:07] LABS: Codeine Confirmation, Urine Negative ng/mL (Cutoff: 25); Dihydrocodeine Conf, Urine Negative ng/mL (Cutoff: 25); Naloxone Confirm, Urine Negative ng/mL (Cutoff: 25); Norhydrocodone Confirm, Urine Negative ng/mL (Cutoff: 25); Noroxycodone Confirm, Urine Negative ng/mL (Cutoff: 25); Noroxymorphone Confirm, Urine Negative ng/mL (Cutoff: 25); Opiates Interpretation, Urine Positive.; Oxycodone Confirm, Urine Negative ng/mL (Cutoff: 25); Oxymorphone Confirm, Urine Negative ng/mL (Cutoff: 25)
[2023-12-06 09:30] VITALS: BP 112/75
== END 2023-12-06 12:50 | disposition home or self-care (01) | DRG 602 ==
LOC: ED 09:56 → EDHOLD 09:56 → SUATTDRO 13:51 → MEDTELE 14:46 → SUATTDRO 11-30 12:00 → MED 12-04 11:30
PROVIDERS: ADMIT Student in an Organized Health Care Education/Training Program; ATTEND Student in an Organized Health Care Education/Training Program

== ENCOUNTER 2024-04-28 04:59 | Inpatient (IN) ==
[2024-04-28 05:40] LABS: ABS Lymphocytes 0.9 10^3/uL (1.0-4.8); ABS Monocytes 0.9 10^3/uL (0.0-1.1); ABS Neutrophils 11.8 10^3/uL (1.5-7.6); ABS Nucleated RBC 0.03 10^3/ul; Hematocrit 37.2 % (38-53); Hemoglobin 12.5 g/dL (13.2-16.3); Lymphocyte % 6.6 %; Mean Corpuscular Hemoglobin 28.6 pg (27-33); Mean Corpuscular Hgb Conc 33.6 g/dL (31-36); Mean Platelet Volume 8.1 fL (7.5-11.2); Nucleated Red Blood Cells % 0.2 %/100WBC (0.0-0.8); Platelet Count 259 10^3/uL (150-450); Red Blood Count 4.38 10^6/uL (4.06-5.63); Red Cell Distribution Width 14.9 % (12-17); White Blood Count 13.7 10^3/uL (3.6-10.2)
[2024-04-28] MEDS: cefTRIAXone 1 gm/50 mL D5W 1 GM/50 ML BAG IV ONE (05:45)
[2024-04-28] MEDS: Pantoprazole VIAL 40 MG VIAL IV ONE (05:45)
[2024-04-28] MEDS: PANTOPRAZOLE IV SCH (05:51)
[2024-04-28] MEDS: NS IV SCH (05:51)
[2024-04-28] MEDS ORDERED: Pantoprazole 80 mg in NS BAG 80 MG/100 ML BAG IV SCH (06:00)
[2024-04-28 06:03] LABS: High Sens Troponin Baseline 350 pg/mL (<20)
[2024-04-28 06:10] LABS: Activated Partial Thrombo Time 33.8 seconds (26.0-38.0); INR 1.26 (0.85-1.14)
[2024-04-28 06:40] LABS: CRP High Sensitivity > 80.00 mg/L (<2.00)
[2024-04-28 07:04] LABS: Albumin 4.2 g/dL (3.5-5.7); Albumin/Globulin Ratio 1.1 (1-3); Calcium 10.5 mg/dL (8.6-10.3); Creatinine, Serum 1.55 mg/dL (0.67-1.17); Globulin 3.9 g/dL (2-4); Potassium 2.9 mmol/L (3.5-5.0); Total Bilirubin 0.8 mg/dL (0.2-1.0); Total Protein 8.1 g/dL (6.4-8.9); eGFR CKD-EPI 54.2 (>60)
[2024-04-28 07:22] LABS: High Sensitivity Troponin 1 Hr 368 pg/mL (<20)
[2024-04-28] MEDS: Iodixanol 320 (CONTRAST) 100 ML SDV IV ONE (08:27)
[2024-04-28] MEDS: KCL 20 MEQ/100 ML IVPREMIX 20 MEQ/100 ML BAG IV SCH (09:37)
[2024-04-28] MEDS: Acetaminophen IV 1 GM/100ML 1,000 MG/100 ML BAG IV ONE (09:56)
[2024-04-28] MEDS ORDERED: Ondansetron 4 mg VIAL 2 MG/ML 2 ml VIAL ONE (10:08)
[2024-04-28] MEDS: Ondansetron 4 mg VIAL 2 MG/ML 2 ml VIAL IV ONE (10:11)
[2024-04-28] MEDS ORDERED: Ondansetron 4 mg VIAL 2 MG/ML 2 ml VIAL IV PRN (10:45)
[2024-04-28] MEDS ORDERED: Prochlorperazine 5 mg/ml 2 ml VIAL (10 mg) IV PRN (10:47)
[2024-04-28 11:13] LABS: Magnesium 1.6 mg/dL (1.9-2.7)
[2024-04-28 11:28] LABS: Creatine Kinase 5159 U/L (10-223)
[2024-04-28] MEDS ORDERED: Albuterol HFA INHALER 8 gm MDI INH PRN ×2 (11:30→11:56)
[2024-04-28] MEDS: Magnesium Sulfate 2 gm BAG 2 GM/50 ML BAG IVPB ONE (14:55)
[2024-04-28] MEDS: Lactated Ringers 1000 ml BAG 1,000 ML IV SCH (14:55)
[2024-04-28] MEDS: Morphine ORAL.SOLN 10 mg 2 mg/ml UDC 5 ml (10 mg) PO SCH (14:56)
[2024-04-28] MEDS: Magnesium Sulfate IV 1GM/100ML 1 GM/100 ML BAG IV ONE (17:19)
[2024-04-28] MEDS: Calcium Polycarbophil 625mg TB PO SCH (21:15)
[2024-04-28] MEDS: DULoxetine DR 30 mg CAP PO SCH (21:19)
[2024-04-28] MEDS: Pantoprazole VIAL 40 MG VIAL IV SCH (21:21)
[2024-04-29 06:22] LABS: ABS Monocytes 0.6 10^3/uL (0.0-1.1); ABS Neutrophils 6.9 10^3/uL (1.5-7.6); ABS Nucleated RBC 0.03 10^3/ul; Eosinophil % 0.2 %; Hematocrit 28.8 % (38-53); Hemoglobin 9.9 g/dL (13.2-16.3); Lymphocyte % 11.8 %; Mean Corpuscular Hemoglobin 29.1 pg (27-33); Mean Corpuscular Hgb Conc 34.4 g/dL (31-36); Mean Corpuscular Volume 84.5 fL (80-97); Mean Platelet Volume 8.2 fL (7.5-11.2); Nucleated Red Blood Cells % 0.3 %/100WBC (0.0-0.8); Platelet Count 175 10^3/uL (150-450); Red Blood Count 3.41 10^6/uL (4.06-5.63); White Blood Count 8.5 10^3/uL (3.6-10.2)
[2024-04-29 06:44] LABS: Calcium 8.7 mg/dL (8.6-10.3); Creatinine, Serum 1.13 mg/dL (0.67-1.17); Potassium 3.2 mmol/L (3.5-5.0); eGFR CKD-EPI 79.2 (>60)
[2024-04-29 07:07] LABS: Albumin 2.9 g/dL (3.5-5.7); Globulin 2.8 g/dL (2-4); Magnesium 2.4 mg/dL (1.9-2.7); Total Bilirubin 0.4 mg/dL (0.2-1.0); Total Protein 5.7 g/dL (6.4-8.9)
[2024-04-29] MEDS: Tiotropium Brom/Olodaterol MDI (ACUTE) INH SCH (07:07)
[2024-04-29 09:32] LABS: C Reactive Protein 403.12 mg/L (<8.01)
[2024-04-29] MEDS: Lactated Ringers 1000 ml BAG 1,000 ML IV SCH (11:19)
[2024-04-30 05:49] LABS: ABS Lymphocytes 1.2 10^3/uL (1.0-4.8); ABS Monocytes 0.6 10^3/uL (0.0-1.1); ABS Neutrophils 7.2 10^3/uL (1.5-7.6); ABS Nucleated RBC 0.01 10^3/ul; Eosinophil % 0.5 %; Hematocrit 25.6 % (38-53); Hemoglobin 8.7 g/dL (13.2-16.3); Lymphocyte % 12.9 %; Mean Corpuscular Hemoglobin 29.1 pg (27-33); Mean Corpuscular Volume 85.5 fL (80-97); Nucleated Red Blood Cells % 0.1 %/100WBC (0.0-0.8); Platelet Count 166 10^3/uL (150-450); Red Blood Count 2.99 10^6/uL (4.06-5.63); Red Cell Distribution Width 15.5 % (12-17)
[2024-04-30 06:09] LABS: Albumin 2.7 g/dL (3.5-5.7); Calcium 8.5 mg/dL (8.6-10.3); Creatinine, Serum 0.88 mg/dL (0.67-1.17); Globulin 2.6 g/dL (2-4); Magnesium 1.9 mg/dL (1.9-2.7); Potassium 3.4 mmol/L (3.5-5.0); Total Bilirubin 0.3 mg/dL (0.2-1.0); Total Protein 5.3 g/dL (6.4-8.9); eGFR CKD-EPI 104.8 (>60)
[2024-04-30] MEDS: Potassium Chlor 20 meq TAB.ER PO ONE (08:37)
[2024-04-30 09:22] LABS: Ferritin 475.6 ng/mL (24-336)
[2024-04-30] MEDS: ceFAZolin 1 GM in Dextrose 1 GM/50 ML BAG IVPB SCH (13:01)
[2024-04-30 16:23] LABS: PCO2 Arterial 42 mmHg (35-45); PO2 Arterial 80 mmHg (80-100)
[2024-04-30] MEDS: methylPREDNISolone SOD SUCC 40 mg/ml 1 ml VIAL IV ONE (16:26)
[2024-04-30] MEDS: Morphine ORAL.SOLN 10 mg 2 mg/ml UDC 5 ml (10 mg) PO SCH (20:28)
[2024-05-01] MEDS: Lactated Ringers 1000 ml BAG 1,000 ML IV ONE (00:29)
[2024-05-01 11:14] LABS: ABS Lymphocytes 1.2 10^3/uL (1.0-4.8); ABS Monocytes 0.5 10^3/uL (0.0-1.1); ABS Neutrophils 9.2 10^3/uL (1.5-7.6); ABS Nucleated RBC 0.01 10^3/ul; Hematocrit 27.6 % (38-53); Hemoglobin 9.1 g/dL (13.2-16.3); Lymphocyte % 11.1 %; Mean Corpuscular Hemoglobin 28.5 pg (27-33); Mean Corpuscular Hgb Conc 32.9 g/dL (31-36); Mean Corpuscular Volume 86.7 fL (80-97); Platelet Count 229 10^3/uL (150-450); Red Blood Count 3.18 10^6/uL (4.06-5.63); Red Cell Distribution Width 15.5 % (12-17); White Blood Count 10.9 10^3/uL (3.6-10.2)
[2024-05-01 16:30] LABS: Calcium 9.2 mg/dL (8.6-10.3); Creatinine, Serum 0.69 mg/dL (0.67-1.17); Potassium 4.3 mmol/L (3.5-5.0); eGFR CKD-EPI 112.7 (>60)
[2024-05-02 08:32] LABS: Hematocrit 27.5 % (38-53); Hemoglobin 9.2 g/dL (13.2-16.3); Mean Corpuscular Hemoglobin 29.1 pg (27-33); Mean Corpuscular Hgb Conc 33.4 g/dL (31-36); Mean Platelet Volume 7.6 fL (7.5-11.2); Platelet Count 265 10^3/uL (150-450); Red Blood Count 3.16 10^6/uL (4.06-5.63); Red Cell Distribution Width 15.3 % (12-17); White Blood Count 10.5 10^3/uL (3.6-10.2)
[2024-05-02 09:20] LABS: C Reactive Protein 116.09 mg/L (<8.01); Calcium 8.7 mg/dL (8.6-10.3); Creatinine, Serum 0.67 mg/dL (0.67-1.17); eGFR CKD-EPI 113.7 (>60)
[2024-05-02 11:38] LABS: ABS Basophils 0.1 10^3/uL (0.0-0.1); ABS Eosinophils 0.1 10^3/uL (0.0-0.5); ABS Lymphocytes 2.1 10^3/uL (1.0-4.8); ABS Monocytes 1.1 10^3/uL (0.0-1.1); ABS Neutrophils 7.2 10^3/uL (1.5-7.6); ABS Nucleated RBC 0.02 10^3/ul; Lymphocyte % 19.6 %; Nucleated Red Blood Cells % 0.2 %/100WBC (0.0-0.8); RBC Morphology Normal (Normal)
[2024-05-03 11:57] LABS: C-ANCA Negative (Negative); P-ANCA Negative (Negative)
[2024-05-04 05:44] LABS: Hematocrit 27.6 % (38-53); Hemoglobin 8.9 g/dL (13.2-16.3); Mean Corpuscular Hemoglobin 28.5 pg (27-33); Mean Corpuscular Hgb Conc 32.4 g/dL (31-36); Mean Corpuscular Volume 87.9 fL (80-97); Mean Platelet Volume 6.9 fL (7.5-11.2); Platelet Count 364 10^3/uL (150-450); Red Blood Count 3.14 10^6/uL (4.06-5.63); Red Cell Distribution Width 16.1 % (12-17); White Blood Count 11.7 10^3/uL (3.6-10.2)
[2024-05-04 06:37] LABS: C Reactive Protein 126.38 mg/L (<8.01); Calcium 8.5 mg/dL (8.6-10.3); Creatinine, Serum 0.68 mg/dL (0.67-1.17); Potassium 4.1 mmol/L (3.5-5.0); eGFR CKD-EPI 113.2 (>60)
[2024-05-04 06:41] LABS: ABS Basophils 0.1 10^3/uL (0.0-0.1); ABS Eosinophils 0.2 10^3/uL (0.0-0.5); ABS Lymphocytes 2.2 10^3/uL (1.0-4.8); ABS Monocytes 1.5 10^3/uL (0.0-1.1); ABS Neutrophils 7.7 10^3/uL (1.5-7.6); ABS Nucleated RBC 0.07 10^3/ul; Anisocytosis 1+; Eosinophil % 1.6 %; Large Platelets Present; Lymphocyte % 18.9 %; Nucleated Red Blood Cells % 0.6 %/100WBC (0.0-0.8); Polychromasia 1+
[2024-05-05 21:47] LABS: Hematocrit 27.9 % (38-53); Mean Corpuscular Hemoglobin 28.4 pg (27-33); Mean Corpuscular Hgb Conc 32.3 g/dL (31-36); Mean Platelet Volume 6.6 fL (7.5-11.2); Platelet Count 358 10^3/uL (150-450); Red Blood Count 3.17 10^6/uL (4.06-5.63)
[2024-05-05 22:37] LABS: Albumin 2.6 g/dL (3.5-5.7); Albumin/Globulin Ratio 0.7 (1-3); C Reactive Protein 144.12 mg/L (<8.01); Calcium 8.6 mg/dL (8.6-10.3); Creatinine, Serum 0.71 mg/dL (0.67-1.17); Globulin 3.5 g/dL (2-4); Potassium 4.4 mmol/L (3.5-5.0); Total Bilirubin 0.3 mg/dL (0.2-1.0); Total Protein 6.1 g/dL (6.4-8.9); eGFR CKD-EPI 111.8 (>60)
[2024-05-05 22:38] LABS: ABS Eosinophils 0.1 10^3/uL (0.0-0.5); ABS Lymphocytes 1.7 10^3/uL (1.0-4.8); ABS Monocytes 1.2 10^3/uL (0.0-1.1); ABS Neutrophils 5.9 10^3/uL (1.5-7.6); ABS Nucleated RBC 0.05 10^3/ul; Lymphocyte % 19.5 %; Nucleated Red Blood Cells % 0.5 %/100WBC (0.0-0.8)
[2024-05-05 22:39] LABS: Polychromasia 1+
[2024-05-05] MEDS: Morphine ORAL.SOLN 10 mg 2 mg/ml UDC 5 ml (10 mg) PO SCH (22:42)
[2024-05-05 22:44] LABS: PCO2 Arterial 36 mmHg (35-45); PO2 Arterial 80 mmHg (80-100)
[2024-05-06 06:19] LABS: Albumin 2.8 g/dL (3.5-5.7); Albumin/Globulin Ratio 0.7 (1-3); Calcium 9.2 mg/dL (8.6-10.3); Creatinine, Serum 0.68 mg/dL (0.67-1.17); Globulin 3.8 g/dL (2-4); Potassium 4.2 mmol/L (3.5-5.0); Total Bilirubin 0.3 mg/dL (0.2-1.0); Total Protein 6.6 g/dL (6.4-8.9); eGFR CKD-EPI 113.2 (>60)
[2024-05-06 07:00] LABS: ABS Eosinophils 0.1 10^3/uL (0.0-0.5); ABS Lymphocytes 1.3 10^3/uL (1.0-4.8); ABS Monocytes 1.2 10^3/uL (0.0-1.1); ABS Neutrophils 6.6 10^3/uL (1.5-7.6); ABS Nucleated RBC 0.05 10^3/ul; Eosinophil % 0.8 %; Hematocrit 30.2 % (38-53); Hemoglobin 9.8 g/dL (13.2-16.3); Lymphocyte % 14.1 %; Mean Corpuscular Hemoglobin 28.9 pg (27-33); Mean Corpuscular Hgb Conc 32.4 g/dL (31-36); Mean Corpuscular Volume 89.1 fL (80-97); Nucleated Red Blood Cells % 0.5 %/100WBC (0.0-0.8); Platelet Count 377 10^3/uL (150-450); Red Blood Count 3.38 10^6/uL (4.06-5.63); Red Cell Distribution Width 15.8 % (12-17); White Blood Count 9.2 10^3/uL (3.6-10.2)
[2024-05-06] MEDS ORDERED: Lidocaine 2% JELLY 6 ML Topical TOPICAL PRN ×2 (14:22→14:24)
[2024-05-08 06:55] LABS: ABS Eosinophils 0.1 10^3/uL (0.0-0.5); ABS Lymphocytes 2.5 10^3/uL (1.0-4.8); ABS Monocytes 0.9 10^3/uL (0.0-1.1); ABS Neutrophils 4.4 10^3/uL (1.5-7.6); ABS Nucleated RBC 0.02 10^3/ul; Lymphocyte % 31.7 %; Mean Corpuscular Hemoglobin 29.1 pg (27-33); Mean Corpuscular Hgb Conc 33.3 g/dL (31-36); Mean Corpuscular Volume 87.3 fL (80-97); Mean Platelet Volume 6.8 fL (7.5-11.2); Nucleated Red Blood Cells % 0.2 %/100WBC (0.0-0.8); Platelet Count 392 10^3/uL (150-450); Red Blood Count 2.74 10^6/uL (4.06-5.63); Red Cell Distribution Width 15.6 % (12-17); White Blood Count 7.9 10^3/uL (3.6-10.2)
[2024-05-09 15:57] LABS: Hematocrit 27.6 % (38-53); Hemoglobin 8.8 g/dL (13.2-16.3)
[2024-05-10 14:16] VITALS: BP 114/69
== END 2024-05-10 16:20 | DRG 871 ==
LOC: ED 04:59 → EDHOLD 04:59 → INTOOBSV 10:45 → SUATTDRO 10:45 → OBSVTOIN 10:45 → MEDTELE 11:07 → MED 12:27
PROVIDERS: ADMIT Student in an Organized Health Care Education/Training Program; ATTEND Student in an Organized Health Care Education/Training Program